=== PATIENT | female | born 1965 | race Caucasian/White ===

== ENCOUNTER 2017-10-04 13:11 | Emergency (ER) | payer MEDICARE ==
[2017-10-04] MEDS ORDERED: XYLOCAINE 1%/Epi 1:100000 MDV 20 ML IJ ONE (13:34)
[2017-10-04] MEDS ORDERED: BACIGUENT PACKET TP ONE (13:34)
[2017-10-04] MEDS ORDERED: Adacel Vial IM ONE ×2 (13:34→13:44)
--- NOTE | 2017-10-04 13:39 | ERPHSYRPT ---
- History of Present Illness Time Seen by Provider: 10/04/17 13:23 Source: patient, family Patient Subjective Stated Complaint: laceration to right forehead after tripping and falling to the ground, struck sidewalk, has lac above right eyebrown, abrasion to left lower leg Triage Nursing Assessment: pt to er c/o laceration just above right eyebrow, tripped and fell striking her head on the sidewalk, glasses intact, denies loss of consciousness denies nause or vomiting, denies mental status change Physician History: CC: fall Hx: 52 y/o patient of Dr scherer. She was outside and the wind blew her over and she fell striking her right eyebrow on the concrete. No LOC. No neck pain. No back pain. Scraped her left knee. Unsure last tetanus vaccine. No N/T/W. No blurred or double vision. Occurred: just prior to arrival Loss of Consciousness: no loss of consciousness Severity of Pain-Max: mild Severity of Pain-Current: mild Allergies/Adverse Reactions: Penicillins Allergy (Verified 10/04/17 13:23) unsure of reaction phenytoin sodium [From Dilantin] Allergy (Verified 10/04/17 13:23) unsure of reaction phenytoin sodium extended [From Dilantin] Allergy (Verified 10/04/17 13:23) Home Medications: Carbamazepine [Tegretol] 1 tab PO TID 07/14/15 [History] Isosorbide Mononitrate [Isosorbide Mononitrate ER] 1 tab PO DAILY 07/14/15 [ History] Metoprolol Succinate 1 tab PO DAILY 07/14/15 [History] Pravastatin Sodium 1 tab PO DAILY 07/14/15 [History] Primidone [Mysoline] 1 tab PO BID 07/14/15 [History] Primidone [Mysoline] 1 tab PO HS 07/14/15 [History] Lamotrigine [Lamictal] 10/04/17 [History] Hx Tetanus, Diphtheria Vaccination/Date Given: No Hx Influenza Vaccination/Date Given: Yes Hx Pneumococcal Vaccination/Date Given: No - Review of Systems Constitutional: No Symptoms Eyes: No Vision Changes, No Double Vision Ears, Nose, & Throat: No Epistaxis Respiratory: No Dyspnea Cardiac: No Chest Pain, No Syncope Abdominal/Gastrointestinal: No Abdominal Pain, No Nausea, No Vomiting Musculoskeletal: No Back Pain, No Neck Pain Skin: No Rash Neurological: No Focal Weakness, No Headache, No Parasthesia All Other Systems: Reviewed and Negative - Past Medical History Pertinent Past Medical History: Yes Neurological History: Epilepsy ENT History: No Pertinent History Cardiac History: Coronary Artery Disease, High Cholesterol, Hypertension Respiratory History: No Pertinent History Endocrine Medical History: No Pertinent History Musculoskeletal History: No Pertinent History GI Medical History: No Pertinent History History: No Pertinent History Psycho-Social History: No Pertinent History Female Reproductive Disorders: No Pertinent History Other Medical History: Mild Mentally Retarded. - Past Surgical History Past Surgical History: Yes Neuro Surgical History: No Pertinent History Cardiac: CABG Respiratory: No Pertinent History Gastrointestinal: No Pertinent History Genitourinary: No Pertinent History Musculoskeletal: No Pertinent History Female Surgical History: No Pertinent History Other Surgical History: had trigger finger surgery on right hand on middle and ring finger in Apr 2015 - Social History Smoking Status: Never smoker Exposure to second hand smoke: No Drug Use: none Patient Lives Alone: Yes - Female History Hx Now: No - Nursing Vital Signs Nursing Vital Signs: Initial Vital Signs Temperature 98.1 F 10/04/17 13:15 Respiratory Rate 20 10/04/17 13:15 O2 Sat by Pulse Oximetry 100 10/04/17 13:15 Pain Scale Pain Intensity 5 - Lynn Coma Score Best Eye Response (Gamaliel): (4) open spontaneously Best Verbal Response (Lynn): (5) oriented Best Motor Response (Lynn): (6) obeys commands Lynn Total: 15 - Physical Exam General Appearance: alert Head Injury: lacerations (2cm right eyebrow) Eye Exam: PERRL/EOMI ENT Exam: airway nml Neck Exam: supple, No mid-line tenderness Respiratory/Chest Exam: normal breath sounds, No chest tenderness Cardiovascular Exam: regular rate/rhythm Gastrointestinal Exam: soft, No tenderness, No distention Extremity Exam: normal inspection, normal range of motion Neurologic Exam: alert, oriented x 3, cooperative, sensation nml, No motor deficits Skin Exam: warm, dry, other (scrape to her left knee), No rash SpO2 Interpretation: normal SpO2: 100 Oxygen Delivery: Room Air Procedures - Laceration/Wound Repair right eyebrow Wound Length (cm): 2 Wound's Depth, Shape: linear Wound Explored: no foreign body noted Irrigated: Yes (NS) Jeana Prep: Yes Anesthesia: local, 1% lidocaine w/ Epi Volume Anesthetic (ccs): 2.5 Wound Repaired With: sutures Suture Size/Type: 5-0, prolene Number of Sutures: 4 - Course Nursing assessment & vital signs reviewed: Yes - CT Exams facial CT Interpretation: Tele-radiologist Report, No Fracture Ordered Tests: Active Orders 24 hr Category Date Time Status Prepare for Sutures STAT Care 10/04/17 13:34 Active Sutures STAT Care 10/04/17 13:34 Active Wound Care STAT Care 10/04/17 13:34 Active FACIAL BONES WO CONTRAST [CT] Stat Exams 10/04/17 13:34 Completed Medication Summary Discontinued Medications Generic Name Dose Route Start Last Admin Trade Name Freq PRN Reason Stop Dose Admin Bacitracin 0.9 gm 10/04/17 13:34 10/04/17 13:58 Baciguent Packet TP 10/04/17 13:35 0.9 gm STAT ONE Administration Bacitracin Confirm 10/04/17 13:44 Baciguent Packet Administered 10/04/17 13:45 Dose 1 gm .ROUTE .STK-MED ONE Diphtheria/Tetanus/Acell Pertussis 0.5 ml 10/04/17 13:34 10/04/17 13:51 Adacel Vial IM 10/04/17 13:35 0.5 ml .ONCE ONE Administration Diphtheria/Tetanus/Acell Pertussis Confirm 10/04/17 13:44 Adacel Vial Administered 10/04/17 13:45 Dose 0.5 ml IM .STK-MED ONE Lidocaine HCl Confirm 10/04/17 13:45 Xylocaine 1% Hcl 20 Ml Mdv Administered 10/04/17 13:46 Dose 5 ml .ROUTE .STK-MED ONE Lidocaine/Epinephrine 5 ml 10/04/17 13:34 Xylocaine 1%/Epi 1:789759 Mdv 20 Ml IJ 10/04/17 13:35 STAT ONE Lidocaine/Epinephrine Confirm 10/04/17 15:33 Xylocaine 1%/Epi 1:789247 Mdv 20 Ml Administered 10/04/17 15:34 Dose 1 ml .ROUTE .STK-MED ONE Lidocaine/Epinephrine Confirm 10/04/17 15:34 Xylocaine 1%/Epi 1:922231 Mdv 20 Ml Administered 10/04/17 15:35 Dose 4 ml .ROUTE .STK-MED ONE - Progress Progress Note: 10/04/17 15:46 Will release with instr. Pt stable. Family in attendance. - Departure Time of Disposition: 15:47 Departure Disposition: Home Clinical Impression: Fall Qualifiers: Encounter type: initial encounter Qualified Code(s): W19.XXXA - Unspecified fall, initial encounter Laceration of right eyebrow Qualifiers: Encounter type: initial encounter Qualified Code(s): S01.111A - Laceration without foreign body of right eyelid and periocular area, initial encounter Abrasion of left knee Qualifiers: Encounter type: initial encounter Qualified Code(s): S80.212A - Abrasion, left knee, initial encounter Condition: Stable Critical Care Time: No Referrals: LACHO SCHERER MD [Primary Care Provider] - Instructions: Laceration Repair With Stitches (DC), Preventing Falls Additional Instructions: LACERATION CARE 1. Do not use peroxide, merthiolate, alcohol, or betadine. 2. Keep wound clean and dry. 3. Change dressing if it becomes wet or soiled. 4. If you must work, wear protective covering. 5. You may return to the emergency department or see your family physician for suture removal. 6. See your family physician or return to the emergency department for any of the following signs or symptoms: A. Redness B. Swelling C. Discolored drainage D. Red streaks E. Elevated temperature F. Other signs of infection HEAD INJURY 1. A responsible person should observe the patient at home for 24 hours. 2. If any of the following signs or symptoms are observed or occur, call your family physician or return to the emergency department: A. Behavior change B. Persistent vomiting C. Unequal pupils D. Increasing drowsiness E. Difficulty in arousing the patient F. Severe headache G. Lump on head increasing in size Suture removal in 5-[address] Scherer office. Return for problems or concerns. Stay with family tonerickson.
[2017-10-04] MEDS ORDERED: BACIGUENT PACKET ONE ×2 (13:44→15:56)
[2017-10-04] MEDS ORDERED: XYLOCAINE 1% HCL 20 ML MDV ONE (13:45)
--- NOTE | 2017-10-04 15:08 | XRAY ---
Indication: Right facial injury following fall. Multiple contiguous axial images obtained through the facial bones. Sagittal and coronal reformatted images obtained. Comparison: None Mild right maxilla and right supraorbital soft tissue swelling. No acute fracture, suspicious bony lesions, or radiopaque foreign body. Orbital roof, sr, and floors intact. Paranasal sinuses and nasal passages are clear. Minimal nasal septal deviation to the right. Patient is edentulous. Nonunited posterior arch of C1, a normal variant. Mild scattered carotid calcifications bilaterally. 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 Impression: 1. Right facial and right supraorbital soft tissue swelling. 2. Negative acute fracture or radiopaque foreign body. CT DI 59.47
[2017-10-04] MEDS ORDERED: XYLOCAINE 1%/Epi 1:100000 MDV 20 ML ONE ×2 (15:33→15:34)
[2017-10-04 16:08] VITALS: BP 161/66; PULSE 64; O2SAT 99
== END 2017-10-04 16:34 | disposition home or self-care (01) ==
LOC: ED 13:11
PROC: 0HQ1XZZ Repair Face Skin, External Approach (ICD-10-PCS; principal; 2017-10-04)
DX: S01.111A Laceration without foreign body of right eyelid and periocular area, initial encounter (principal); S80.212A Abrasion, left knee, initial encounter; W18.09XA Striking against other object with subsequent fall, initial encounter; I10 Essential (primary) hypertension; I25.810 Atherosclerosis of coronary artery bypass graft(s) without angina pectoris; E78.00 Pure hypercholesterolemia, unspecified; Z79.899 Other long term (current) drug therapy
CPT/HCPCS: 12011; 36415; 70486; 80156; 80175; 80184; 80188; 84450; 85025; 90471; 90715; 99283; 99284; A9270-GY

== ENCOUNTER 2021-12-01 21:08 | Inpatient (IN) | payer MEDICARE ==
[2021-12-01 22:12] LABS: Absolute Neutrophil Ct (ANC) 5.31 (1.4-6.9); Basophil (Absolute #) 0.03 (0-0.4); Eosinophil % 3.8 % (0.00-5.0); Eosinophil (Absolute #) 0.28 (0-0.5); Hemoglobin 11.4 gm/dl (12.0-16.0); Lymphocytes % 12.3 % (24.0-44.0); Mean Cell Volume 98.9 fl (78-100); Mean Corpuscular Hemoglobin 30.5 pg (26-32); Mean Corpuscular Hgb Concent. 30.8 g/dl (32-36); Mean Platelet Volume 10.3 fl (7.5-11.0); Monocyte (Absolute #) 0.77 (0.0-1.3); Monocytes % 10.6 % (0.0-12.0); Neutrophil % 72.9 % (36.0-66.0); Platelet Count 491 K/mm3 (150-450); Red Blood Count 3.74 M/mm3 (4.1-5.4); Red Cell Distribution Width 13.3 % (11.5-14.0); White Blood Count 7.3 K/mm3 (4.0-10.5)
--- NOTE | 2021-12-01 22:23 | ERPHSYRPT ---
- History of Present Illness Time Seen by Provider: 12/01/21 21:30 Source: patient Exam Limitations: no limitations Patient Subjective Stated Complaint: patient states that she was seen in er at [facility] 1 week ago. states she was in afib then, she states she is coughing and is SOB due to the cough, states she has pain in her chest due to the cough. states she has not been in contact with anyone that has covid. Triage Nursing Assessment: patient has a dry cough and is holding chest while coughing. currently in afib on monitor and on 12 lead. pt is alert and oriented. Physician History: Patient is a 56-year-old female presents to emergency department via EMS for evaluation of a dry cough and shortness of breath. Patient was at [facility] 1 week ago. Patient was diagnosed with atrial fibrillation. Patient was started on anticoagulation. Patient was discharged home. Patient is here today because her cough is constant and she is experiencing shortness of breath. No fever. No nausea or vomiting. No diaphoresis. Symptoms are moderate in intensity. No specific worsening improving factors. Patient voices no other complaints or concerns at this time. Timing/Duration: today Severity: moderate Modifying Factors: Improves With: nothing Associated Symptoms: No nausea, No vomiting, No diaphoresis, No headaches, No syncope, No seizure Allergies/Adverse Reactions: Penicillins Allergy (Verified 12/01/21 21:26) unsure of reaction phenobarbital Allergy (Verified 12/01/21 21:25) phenytoin sodium [From Dilantin] Allergy (Verified 12/01/21 21:26) unsure of reaction phenytoin sodium extended [From Dilantin] Allergy (Verified 12/01/21 21:26) Home Medications: Isosorbide Mononitrate [Isosorbide Mononitrate ER] 1 tab PO DAILY 07/14/15 [History] Metoprolol Succinate 1 tab PO DAILY 07/14/15 [History] Pravastatin Sodium 1 tab PO DAILY 07/14/15 [History] Primidone [Mysoline] 1 tab PO BID 07/14/15 [History] Primidone [Mysoline] 1 tab PO HS 07/14/15 [History] carBAMazepine [Tegretol] 1 tab PO TID 07/14/15 [History] lamoTRIgine [Lamictal] 10/04/17 [History] Hx Tetanus, Diphtheria Vaccination/Date Given: Yes Hx Influenza Vaccination/Date Given: No Hx Pneumococcal Vaccination/Date Given: No Immunizations Up to Date: No Travel Risk - International Travel Have you traveled outside of the country in past 3 weeks: No - Coronavirus Screening Are you exhibiting any of the following symptoms?: Yes Symptoms: Cough: New Onset, Shortness of Breath Close contact with a COVID-19 positive Pt in past 14-21 Days: No - Vaccine Status Have you recieved a Covid-19 vaccination: No - Review of Systems Constitutional: No Symptoms, No Fever, No Chills Eyes: No Symptoms Ears, Nose, & Throat: No Symptoms Respiratory: No Symptoms, No Cough, No Dyspnea Cardiac: No Symptoms, No Chest Pain, No Edema, No Syncope Abdominal/Gastrointestinal: No Symptoms, No Abdominal Pain, No Nausea, No Vomiting, No Diarrhea Genitourinary Symptoms: No Symptoms, No Dysuria Musculoskeletal: No Symptoms, No Back Pain, No Neck Pain Skin: No Symptoms, No Rash Neurological: No Symptoms, No Dizziness, No Focal Weakness, No Sensory Changes Psychological: No Symptoms Endocrine: No Symptoms Hematologic/Lymphatic: No Symptoms Immunological/Allergic: No Symptoms All Other Systems: Reviewed and Negative - Past Medical History Pertinent Past Medical History: Yes Neurological History: Epilepsy ENT History: No Pertinent History Cardiac History: Coronary Artery Disease, High Cholesterol, Hypertension Respiratory History: No Pertinent History Endocrine Medical History: No Pertinent History Musculoskeletal History: No Pertinent History GI Medical History: No Pertinent History History: No Pertinent History Psycho-Social History: No Pertinent History Female Reproductive Disorders: No Pertinent History Other Medical History: Mild Mentally Retarded. - Past Surgical History Past Surgical History: Yes Neuro Surgical History: No Pertinent History Cardiac: CABG Respiratory: No Pertinent History Gastrointestinal: No Pertinent History Genitourinary: No Pertinent History Musculoskeletal: No Pertinent History Female Surgical History: No Pertinent History Other Surgical History: had trigger finger surgery on right hand on middle and ring finger in Apr 2015 - Social History Smoking Status: Never smoker Exposure to second hand smoke: No Drug Use: none Patient Lives Alone: Yes - Nursing Vital Signs Nursing Vital Signs: Initial Vital Signs Temperature 98.4 F 12/01/21 21:11 Pulse Rate 93 H 12/01/21 21:11 Respiratory Rate 18 12/01/21 21:11 Blood Pressure 155/89 12/01/21 21:11 O2 Sat by Pulse Oximetry 94 L 12/01/21 21:11 Pain Scale Pain Intensity 0 - Physical Exam General Appearance: no apparent distress, alert Eye Exam: PERRL/EOMI, eyes nml inspection Ears, Nose, Throat Exam: normal ENT inspection, TMs normal, pharynx normal, moist mucous membranes Neck Exam: normal inspection, non-tender, supple, full range of motion Respiratory Exam: normal breath sounds, lungs clear, airway intact, No respiratory distress Cardiovascular Exam: regular rate/rhythm, normal heart sounds, normal peripheral pulses Gastrointestinal/Abdomen Exam: soft, normal bowel sounds, No tenderness, No mass Back Exam: normal inspection, normal range of motion, No CVA tenderness, No vertebral tenderness Extremity Exam: normal inspection, normal range of motion, pelvis stable Neurologic Exam: alert, oriented x 3, cooperative, normal mood/affect, nml cerebellar function, nml station & gait, sensation nml, No motor deficits Skin Exam: normal color, warm, dry, No rash Lymphatic Exam: No adenopathy SpO2 Interpretation: normal SpO2: 94 O2 Delivery: Room Air - Course Nursing assessment & vital signs reviewed: Yes EKG Interpreted by Me: RATE (119), A-fib, NORMAL AXIS, prolonged QT interval - Radiology Exams Chest X-ray Interpretation: Interpreted by me (Right perihilar and right basilar infiltrates with areas that appear to be cavitary. Previous CABG.Heart size within normal limits) Ordered Tests: Active Orders 24 hr Category Date Time Status Firmware Software Verification Engineer STAT Care 12/01/21 21:53 Active EKG-ER Only STAT Care 12/01/21 21:52 Active Pulse Oximetry (ED) STAT Care 12/01/21 21:52 Active CHEST 1 VIEW (PORTABLE) Stat Exams 12/01/21 22:24 Taken BLOOD CULTURE Stat Lab 12/01/21 00:30 Received CBC W DIFF Stat Lab 12/01/21 22:05 Completed CMP Stat Lab 12/01/21 22:05 Completed Lactic Acid Stat Lab 12/01/21 23:57 Completed NT PRO BNP Stat Lab 12/01/21 22:05 Completed TROPONIN Q3H Lab 12/01/21 22:05 Completed TROPONIN Q3H Lab 12/02/21 01:00 Ordered TROPONIN Q3H Lab 12/02/21 04:00 Ordered TROPONIN Q3H Lab 12/02/21 07:00 Ordered TROPONIN Q3H Lab 12/02/21 10:00 Ordered Transfer Order Routine Transfer 12/02/21 Ordered Medication Summary Generic Name Dose Route Start Last Admin Trade Name Shawnee PRN Reason Stop Dose Admin Diltiazem HCl 100 mls @ 5 mls/hr 12/01/21 22:21 12/02/21 00:01 Cardizem Drip 100 Mg/100 Ml D5w IV 12/31/21 22:20 10 mg/hr .Q20H PRN 10 mls/hr HEART RATE/ A-FIB Titration Protocol 5 MG/HR Vancomycin HCl 1 gm in 200 mls @ 125 mls/hr 12/01/21 23:59 12/02/21 00:19 Vancomycin 1 Gram/200 Ml Bag IV 12/02/21 01:34 125 mls/hr STAT ONE 125 mls/hr Administration Discontinued Medications Generic Name Dose Route Start Last Admin Trade Name Shawnee PRN Reason Stop Dose Admin Furosemide 40 mg 12/01/21 22:59 12/01/21 23:26 Furosemide 40 Mg/4 Ml Vial IV 12/01/21 23:00 40 mg STAT ONE Administration Furosemide Confirm 12/01/21 23:24 Furosemide 40 Mg/4 Ml Vial Administered 12/01/21 23:25 Dose 40 mg .ROUTE .STK-MED ONE Clindamycin HCl/Dextrose 900 mg in 50 mls @ 100 mls/hr 12/02/21 00:02 Clindamycin-D5w 900 Mg/50 Ml IV 12/02/21 00:31 STAT STA Vancomycin HCl Confirm 12/02/21 00:08 Vancomycin 1 Gram/200 Ml Bag Administered 12/02/21 00:09 Dose 1 gm in 200 mls @ ud IV .STK-MED ONE Lab/Rad Data: Laboratory Result Diagrams 12/01/21 22:05 12/01/21 22:05 Laboratory Results 12/02/21 12/01/21 12/01/21 Range/Units 00:15 22:05 22:05 WBC (4.0-10.5) K/mm3 RBC (4.1-5.4) M/mm3 Hgb (12.0-16.0) gm/dl Hct (35-47) % MCV (78-100) fl MCH (26-32) pg MCHC (32-36) g/dl RDW (11.5-14.0) % Plt Count (150-450) K/mm3 MPV (7.5-11.0) fl Gran % (36.0-66.0) % Eos # (Auto) (0-0.5) Absolute Lymphs (auto) (1.0-4.6) Absolute Monos (auto) (0.0-1.3) Lymphocytes % (24.0-44.0) % Monocytes % (0.0-12.0) % Eosinophils % (0.00-5.0) % Basophils % (0.0-0.4) % Absolute Granulocytes (1.4-6.9) Basophils # (0-0.4) Sodium 135 L (137-145) mmol/L Potassium 5.2 H (3.5-5.1) mmol/L Chloride 98 (98-107) mmol/L Carbon Dioxide 27 (22-30) mmol/L Anion Gap 15.2 H (5-15) MEQ/L BUN 17 (7-17) mg/dL Creatinine 0.86 (0.52-1.04) mg/dL Estimated GFR > 60.0 ML/MIN Glucose 111 H (74-106) mg/dL Lactic Acid 1.8 (0.4-2.0) Calcium 9.2 (8.4-10.2) mg/dL Total Bilirubin 1.00 (0.2-1.3) mg/dL AST 32 (14-36) U/L ALT 20 (0-35) U/L Alkaline Phosphatase 68 (38-126) U/L Troponin I < 0.012 (0.000-0.034) ng/mL NT-Pro-B Natriuret Pep 5670 H (0-900) pg/mL Serum Total Protein 8.0 (6.3-8.2) g/dL Albumin 3.6 (3.5-5.0) g/dL Influenza Type A Ag (NEGATIVE) Influenza Type B Ag (NEGATIVE) RSV (PCR) (Negative) SARS-CoV-2 (PCR) (NEGATIVE) 12/01/21 12/01/21 Range/Units 22:05 00:01 WBC 7.3 (4.0-10.5) K/mm3 RBC 3.74 L (4.1-5.4) M/mm3 Hgb 11.4 L (12.0-16.0) gm/dl Hct 37.0 (35-47) % MCV 98.9 (78-100) fl MCH 30.5 (26-32) pg MCHC 30.8 L (32-36) g/dl RDW 13.3 (11.5-14.0) % Plt Count 491 H (150-450) K/mm3 MPV 10.3 (7.5-11.0) fl Gran % 72.9 H (36.0-66.0) % Eos # (Auto) 0.28 (0-0.5) Absolute Lymphs (auto) 0.90 L (1.0-4.6) Absolute Monos (auto) 0.77 (0.0-1.3) Lymphocytes % 12.3 L (24.0-44.0) % Monocytes % 10.6 (0.0-12.0) % Eosinophils % 3.8 (0.00-5.0) % Basophils % 0.4 (0.0-0.4) % Absolute Granulocytes 5.31 (1.4-6.9) Basophils # 0.03 (0-0.4) Sodium (137-145) mmol/L Potassium (3.5-5.1) mmol/L Chloride (98-107) mmol/L Carbon Dioxide (22-30) mmol/L Anion Gap (5-15) MEQ/L BUN (7-17) mg/dL Creatinine (0.52-1.04) mg/dL Estimated GFR ML/MIN Glucose (74-106) mg/dL Lactic Acid (0.4-2.0) Calcium (8.4-10.2) mg/dL Total Bilirubin (0.2-1.3) mg/dL AST (14-36) U/L ALT (0-35) U/L Alkaline Phosphatase (38-126) U/L Troponin I (0.000-0.034) ng/mL NT-Pro-B Natriuret Pep (0-900) pg/mL Serum Total Protein (6.3-8.2) g/dL Albumin (3.5-5.0) g/dL Influenza Type A Ag NEGATIVE (NEGATIVE) Influenza Type B Ag NEGATIVE (NEGATIVE) RSV (PCR) NEGATIVE (Negative) SARS-CoV-2 (PCR) NEGATIVE (NEGATIVE) - Progress Progress: improved Progress Note: Case discussed with Dr. Shrestha who accepts admission to observation.Plan of care discussed with patient. She agrees to admission at [facility] for further evaluation. Work-up reveals A. fib with RVR. Cardizem initiated. Chest x-ray reveals what appears to be a pneumonia. Blood cultures obtained. Lactic acid within normal limits. Antibiotics infused. BNP elevated. Lasix administered. Potassium marginally elevated at 5.2. Upper limits of normal is 5.1. No peaked T waves on EKGThe Lasix will help out with this mildly elevated potassium. 12/02/21 00:47 COVID test negative 12/02/21 00:48 Patient currently on Eliquis anticoagulation. 12/02/21 00:58 Portions of this note were created with voice recognition technology. There may be grammatical, spelling, punctuation or sound alike errors 12/02/21 00:[address] Bandar Will see patient in: hospital (observation) Counseled pt/family regarding: lab results, diagnosis, rad results - Departure Departure Disposition: Observation Clinical Impression: Atrial fibrillation with RVR, Elevated brain natriuretic peptide (BNP) level, Pneumonia, Thrombocytosis, Hyperkalemia Condition: Stable Critical Care Time: No Referrals: LACHO HARPER MD [Primary Care Provider] - Follow up/PCP as directed Additional Instructions: Discharge/Care Plan JASON MOJICA was seen on 12/02/21 in the Emergency Room. The patient was counseled regarding Diagnosis,Lab results, Imaging studies, need for follow up and when to return to the Emergency Room. Prescriptions given: Discharge Note I have spoken with the patient and/or caregivers. I have explained the patient's condition, diagnosis and treatment plan based on the information available to me at this time. I have answered the patient's and/or caregiver's questions and addressed any concerns. The patient and/or caregivers have as good understanding of the patient's diagnosis, condition and treatment plan as can be expected at this point. The vital signs have been stable. The patient's condition is stable and appropriate for discharge from the emergency department. The patient will pursue further outpatient evaluation with the primary care physician or other designated or consulting physician as outlined in the discharge instructions. The patient and/or caregivers are agreeable to this plan of care and follow-up instructions have been explained in detail. The patient a nd/or caregivers have received these instruction. The patient/and or caregivers are aware that any significant change in condition or worsening of symptoms should prompt an immediate return to this or the closest emergency department or call 911.
[2021-12-01] MEDS: CARDIZEM DRIP 100 MG/100 ML D5W 100 ML IV PRN (22:38)
[2021-12-01 22:44] LABS: ALBUMIN 3.6 g/dL (3.5-5.0); ALKALINE PHOSPHATASE 68 U/L (38-126); ANION GAP 15.2 MEQ/L (5-15); BLOOD UREA NITROGEN 17 mg/dL (7-17); CHLORIDE 98 mmol/L (98-107); Calcium 9.2 mg/dL (8.4-10.2); Carbon Dioxide 27 mmol/L (22-30); Creatinine 1 0.86 mg/dL (0.52-1.04); EST GLOMERULAR FILTRATION RATE > 60.0 ML/MIN; Glucose 111 mg/dL (74-106); NT PRO BNP 5670 pg/mL (0-900); Potassium 5.2 mmol/L (3.5-5.1); SGOT/AST 32 U/L (14-36); SGPT/ALT 20 U/L (0-35); SODIUM 135 mmol/L (137-145)
[2021-12-01] MEDS ORDERED: Lasix 40 MG/4 ML IV ONE (22:59)
[2021-12-01] MEDS ORDERED: Lasix 40 MG/4 ML ONE (23:24)
[2021-12-01] MEDS ORDERED: VANCOMYCIN 1 GRAM/200 ML BAG 1 GM/200 ML PIGGYBACK IV ONE (23:59)
[2021-12-02] MEDS ORDERED: CLINDAMYCIN-D5W 900 MG/50 ML*** 900 MG/50 ML BAG IV STA (00:02)
[2021-12-02] MEDS ORDERED: VANCOMYCIN 1 GRAM/200 ML BAG 1 GM/200 ML PIGGYBACK IV ONE (00:08)
[2021-12-02 00:40] LABS: INFLUENZA A NEGATIVE (NEGATIVE); INFLUENZA B NEGATIVE (NEGATIVE); RESPIRATORY SYNCTIAL VIRUS NEGATIVE (Negative); SARS-CoV-2 Xpert Express NEGATIVE (NEGATIVE)
[2021-12-02] MEDS ORDERED: Zofran 4 MG/2 ML VIAL IV PRN (01:19)
[2021-12-02] MEDS ORDERED: MILK OF MAGNESIA 30 ML PO PRN (01:19)
[2021-12-02] MEDS ORDERED: MAALOX ES 30 ML UNIT DOSE PO PRN (01:19)
[2021-12-02] MEDS ORDERED: TYLENOL 325 MG PO PRN (01:19)
[2021-12-02] MEDS ORDERED: Senokot-S Tablet PO PRN (01:19)
[2021-12-02] MEDS: CARDIZEM DRIP 100 MG/100 ML D5W 100 ML IV PRN ×2 (02:23→04:56)
[2021-12-02 05:26] LABS: Risk Ratio 3.8
--- NOTE | 2021-12-02 08:54 | XRAY ---
Indication: Cough. Atrial fibrillation. Comparison: None Portable chest demonstrates diffuse patchy right lung airspace disease without consolidation/large effusion. Remaining heart, lungs, and bony thorax unremarkable with incidental CABG. Comment: Preliminary interpretation made by [facility]. No critical discrepancy.
--- NOTE | 2021-12-02 09:08 | PCM.HP ---
History of Present Illness - Chief Complaint Chief Complaint: A. fib with RVR History of Present Illness: is a 56 year old female who presented to the ER with shortness of breath, cough and elevated heart rate. She was recently admitted to [facility], in atrial fib and on eliquis, taking metoprolol 150mg po bid but heart rate to 140, swelling and shortness of breath with cough. Family states she was swollen when released from [facility] 2 weeks ago, progressively worsening since then. previous hx of CABG. - Review of Systems Constitutional: No Fever, No Chills Respiratory: Cough, Short Of Breath Cardiac: No Symptoms Abdominal/Gastrointestinal: No Abdominal Pain, No Nausea, No Vomiting, No Diarrhea Skin: No Rash All Other Systems: Reviewed and Negative Medications & Allergies Home Medications: Home Medication List Isosorbide Mononitrate [Isosorbide Mononitrate ER] 30 mg PO DAILY 07/14/15 [History Confirmed 12/02/21] Pravastatin Sodium 40 mg PO HS 07/14/15 [History Confirmed 12/02/21] Primidone [Mysoline] 375 mg PO DAILY 07/14/15 [History Confirmed 12/02/21] Amlodipine Besylate 5 mg [Norvasc 5 mg] 5 mg PO DAILY 12/02/21 [History Confirmed 12/02/21] Apixaban [Eliquis 5 mg Tablet] 5 mg PO BID 12/02/21 [History Confirmed 12/02/21] Levetiracetam [Keppra] 500 mg PO BID 12/02/21 [History Confirmed 12/02/21] Losartan Potassium [Cozaar] 25 mg PO DAILY 12/02/21 [History Confirmed 12/02/21] Meclizine HCl 25 mg [Antivert 25 mg] 25 mg PO TID 12/02/21 [History Confirmed 12/02/21] Metoprolol Tartrate [Lopressor] 150 mg PO BID 12/02/21 [History Confirmed 12/02/21] lamoTRIgine [Lamictal] 300 mg PO BID 12/02/21 [History Confirmed 12/02/21] Allergies/Adverse Reactions: Allergies Allergy/AdvReac Type Severity Reaction Status Date / Time Penicillins Allergy Verified 12/01/21 21:26 phenobarbital Allergy Verified 12/01/21 21:25 phenytoin sodium Allergy Verified 12/01/21 21:26 [From Dilantin] phenytoin sodium extended Allergy Verified 12/01/21 21:26 [From Dilantin] - Past Medical History Past Medical History: Yes Neurological History: Epilepsy ENT History: No Pertinent History Cardiac History: Congestive Heart Failure, Coronary Artery Disease, High Cholesterol, Hypertension Respiratory History: CHF Endocrine Medical History: No Pertinent History Musculoskelatal History: No Pertinent History GI Medical History: No Pertinent History History: No Pertinent History Pyscho-Social History: Other Reproductive Disorders: No Pertinent History Comment: Mildly mentally delayed - Female History Are you now?: No - Past Surgical History Past Surgical History: Yes Neuro Surgical History: No Pertinent History Cardiac History: CABG Respiratory Surgery: No Pertinent History GI Surgical History: No Pertinent History Genitourinary Surgical Hx: No Pertinent History Musculskeletal Surgical Hx: No Pertinent History Female Surgical History: No Pertinent History Other Surgical History: had trigger finger surgery on right hand on middle and ring finger in Apr 2015 - Social History Smoking Status: Never smoker Exposure to second hand smoke: No Alcohol: None Drug Use: none - Physical Exam Vital Signs: Vital Signs - 24 hr Temp Pulse Resp BP BP Pulse Ox 12/02/21 08:00 99 H 35 H 107/80 93 L 12/02/21 07:59 118 H 12/02/21 07:36 98.2 F 113 H 21 181/64 92 L 12/02/21 07:29 92 L 12/02/21 06:23 94 H 26 H 138/79 12/02/21 05:56 106 H 22 130/73 12/02/21 05:23 98 H 27 H 130/73 12/02/21 05:00 92 L 12/02/21 04:56 113 H 22 108/73 12/02/21 04:23 97 H 24 108/73 12/02/21 04:00 99.8 F 113 H 22 108/73 91 L 12/02/21 03:23 93 H 22 116/61 12/02/21 03:07 93 H 22 116/61 12/02/21 02:23 92 H 20 127/110 12/02/21 01:16 100.6 F 113 H 26 H 135/83 91 L 12/02/21 01:00 94 L 12/02/21 01:00 115 H 18 131/73 93 L 12/02/21 00:41 112 H 18 131/73 12/02/21 00:01 138 H 18 131/73 12/01/21 23:54 125 H 18 131/73 92 L 12/01/21 22:38 125 H 18 136/95 12/01/21 22:19 110 H 18 137/74 95 12/01/21 22:18 92 L 12/01/21 21:11 98.4 F 93 H 18 155/89 94 L General Appearance: mild distress, obese Neurologic Exam: alert, oriented x 3 Respiratory Exam: accessory muscle use, prolonged expirations, rhonchi Cardiovascular Exam: murmur, tachycardia, irregular Gastrointestinal/Abdomen Exam: soft, normal bowel sounds, No tenderness, No mass Extremity Exam: normal inspection, normal range of motion, pelvis stable Skin Exam: normal color, warm, dry, No rash Wound Assessment: Skin/Wound Assessment Wound/Incision Assessment Start: 12/02/21 02:14 Text: Status: Active Freq: Q6H Protocol: Document 12/02/21 07:59 DALTON (Rec: 12/02/21 08:04 DALTON [id number]) Wound/Incision Assessment Left Lower Other Wound Assessment Shift Assessment Wound Type Laceration Wound Stage Non Pressure Wound Drainage Amount None General Appearance Open to air Surrounding Tissue Silex Wound Photo Photo Taken No Results - Labs Lab/Micro Results: Lab Results-Last 24 Hours 12/01/21 12/01/21 12/01/21 Range/Units 00:01 22:05 22:05 WBC 7.3 (4.0-10.5) K/mm3 RBC 3.74 L (4.1-5.4) M/mm3 Hgb 11.4 L (12.0-16.0) gm/dl Hct 37.0 (35-47) % MCV 98.9 (78-100) fl MCH 30.5 (26-32) pg MCHC 30.8 L (32-36) g/dl RDW 13.3 (11.5-14.0) % Plt Count 491 H (150-450) K/mm3 MPV 10.3 (7.5-11.0) fl Gran % 72.9 H (36.0-66.0) % Eos # (Auto) 0.28 (0-0.5) Absolute Lymphs (auto) 0.90 L (1.0-4.6) Absolute Monos (auto) 0.77 (0.0-1.3) Lymphocytes % 12.3 L (24.0-44.0) % Monocytes % 10.6 (0.0-12.0) % Eosinophils % 3.8 (0.00-5.0) % Basophils % 0.4 (0.0-0.4) % Absolute Granulocytes 5.31 (1.4-6.9) Basophils # 0.03 (0-0.4) Sodium 135 L (137-145) mmol/L Potassium 5.2 H (3.5-5.1) mmol/L Chloride 98 (98-107) mmol/L Carbon Dioxide 27 (22-30) mmol/L Anion Gap 15.2 H (5-15) MEQ/L BUN 17 (7-17) mg/dL Creatinine 0.86 (0.52-1.04) mg/dL Estimated GFR > 60.0 ML/MIN Glucose 111 H (74-106) mg/dL Lactic Acid (0.4-2.0) Calcium 9.2 (8.4-10.2) mg/dL Total Bilirubin 1.00 (0.2-1.3) mg/dL AST 32 (14-36) U/L ALT 20 (0-35) U/L Alkaline Phosphatase 68 (38-126) U/L Troponin I (0.000-0.034) ng/mL NT-Pro-B Natriuret Pep 5670 H (0-900) pg/mL Serum Total Protein 8.0 (6.3-8.2) g/dL Albumin 3.6 (3.5-5.0) g/dL Triglycerides (30-150) mg/dL Cholesterol (50-200) mg/dL LDL Cholesterol (30-100) mg/dL HDL Cholesterol (40-60) mg/dL Heart Disease Risk Ratio Influenza Type A Ag NEGATIVE (NEGATIVE) Influenza Type B Ag NEGATIVE (NEGATIVE) RSV (PCR) NEGATIVE (Negative) SARS-CoV-2 (PCR) NEGATIVE (NEGATIVE) 12/01/21 12/02/21 12/02/21 Range/Units 22:05 00:15 00:30 WBC (4.0-10.5) K/mm3 RBC (4.1-5.4) M/mm3 Hgb (12.0-16.0) gm/dl Hct (35-47) % MCV (78-100) fl MCH (26-32) pg MCHC (32-36) g/dl RDW (11.5-14.0) % Plt Count (150-450) K/mm3 MPV (7.5-11.0) fl Gran % (36.0-66.0) % Eos # (Auto) (0-0.5) Absolute Lymphs (auto) (1.0-4.6) Absolute Monos (auto) (0.0-1.3) Lymphocytes % (24.0-44.0) % Monocytes % (0.0-12.0) % Eosinophils % (0.00-5.0) % Basophils % (0.0-0.4) % Absolute Granulocytes (1.4-6.9) Basophils # (0-0.4) Sodium (137-145) mmol/L Potassium (3.5-5.1) mmol/L Chloride (98-107) mmol/L Carbon Dioxide (22-30) mmol/L Anion Gap (5-15) MEQ/L BUN (7-17) mg/dL Creatinine (0.52-1.04) mg/dL Estimated GFR ML/MIN Glucose (74-106) mg/dL Lactic Acid 1.8 (0.4-2.0) Calcium (8.4-10.2) mg/dL Total Bilirubin (0.2-1.3) mg/dL AST (14-36) U/L ALT (0-35) U/L Alkaline Phosphatase (38-126) U/L Troponin I < 0.012 < 0.012 (0.000-0.034) ng/mL NT-Pro-B Natriuret Pep (0-900) pg/mL Serum Total Protein (6.3-8.2) g/dL Albumin (3.5-5.0) g/dL Triglycerides (30-150) mg/dL Cholesterol (50-200) mg/dL LDL Cholesterol (30-100) mg/dL HDL Cholesterol (40-60) mg/dL Heart Disease Risk Ratio Influenza Type A Ag (NEGATIVE) Influenza Type B Ag (NEGATIVE) RSV (PCR) (Negative) SARS-CoV-2 (PCR) (NEGATIVE) 12/02/21 12/02/21 12/02/21 Range/Units 04:15 04:15 07:15 WBC (4.0-10.5) K/mm3 RBC (4.1-5.4) M/mm3 Hgb (12.0-16.0) gm/dl Hct (35-47) % MCV (78-100) fl MCH (26-32) pg MCHC (32-36) g/dl RDW (11.5-14.0) % Plt Count (150-450) K/mm3 MPV (7.5-11.0) fl Gran % (36.0-66.0) % Eos # (Auto) (0-0.5) Absolute Lymphs (auto) (1.0-4.6) Absolute Monos (auto) (0.0-1.3) Lymphocytes % (24.0-44.0) % Monocytes % (0.0-12.0) % Eosinophils % (0.00-5.0) % Basophils % (0.0-0.4) % Absolute Granulocytes (1.4-6.9) Basophils # (0-0.4) Sodium (137-145) mmol/L Potassium (3.5-5.1) mmol/L Chloride (98-107) mmol/L Carbon Dioxide (22-30) mmol/L Anion Gap (5-15) MEQ/L BUN (7-17) mg/dL Creatinine (0.52-1.04) mg/dL Estimated GFR ML/MIN Glucose (74-106) mg/dL Lactic Acid (0.4-2.0) Calcium (8.4-10.2) mg/dL Total Bilirubin (0.2-1.3) mg/dL AST (14-36) U/L ALT (0-35) U/L Alkaline Phosphatase (38-126) U/L Troponin I < 0.012 < 0.012 (0.000-0.034) ng/mL NT-Pro-B Natriuret Pep (0-900) pg/mL Serum Total Protein (6.3-8.2) g/dL Albumin (3.5-5.0) g/dL Triglycerides 66 (30-150) mg/dL Cholesterol 115 (50-200) mg/dL LDL Cholesterol 63 (30-100) mg/dL HDL Cholesterol 30 L (40-60) mg/dL Heart Disease Risk Ratio 3.8 Influenza Type A Ag (NEGATIVE) Influenza Type B Ag (NEGATIVE) RSV (PCR) (Negative) SARS-CoV-2 (PCR) (NEGATIVE) - Radiology Impressions Radiology Exams & Impressions: Radiology Procedures Category Date Time Status CHEST 1 VIEW (PORTABLE) Stat Exams 12/01/21 22:24 Completed - Other Procedures and Tests Respiratory Therapy 12/02/21 01:36 Oxygen NASAL CANNULA 2 lpm 12/03/21 05:00 EKG DAILY 12/04/21 05:00 EKG DAILY 12/05/21 05:00 EKG DAILY Assessment/Plan (1) Atrial fibrillation with RVR Current Visit: Yes Status: Acute Assessment & Plan: rate in low 100's, currently on cardizem at 10mg/hr, will consult cardiology for recommendations since she has failed large beta babak dose of metoprolol 150mg bid, continue eliquis Code(s): I48.91 - UNSPECIFIED ATRIAL FIBRILLATION (2) Pneumonia Current Visit: Yes Status: Acute Assessment & Plan: covering with levaquin based on chest xray and clinical picture Code(s): J18.9 - PNEUMONIA, UNSPECIFIED ORGANISM (3) Systolic CHF, acute on chronic Current Visit: Yes Status: Acute Assessment & Plan: will diurese with lasix, EF 4 months ago on echo was 40-45% and has volume overload on exam with markedly elevated bnp Code(s): I50.23 - ACUTE ON CHRONIC SYSTOLIC (CONGESTIVE) HEART FAILURE (4) Seizure disorder Current Visit: Yes Status: Acute Assessment & Plan: continue home meds Code(s): G40.909 - EPILEPSY, UNSP, NOT INTRACTABLE, WITHOUT STATUS EPILEPTICUS
[2021-12-02] MEDS ORDERED: LAMOTRIGINE 150 MG PO SCH (10:00)
[2021-12-02] MEDS ORDERED: NORVASC 5 MG PO SCH (10:00)
[2021-12-02] MEDS ORDERED: NON-FORMULARY ITEM (Apixaban*** [Eliquis 5 Mg Tablet***] 5 MG Tablet) PO SCH (10:00)
[2021-12-02] MEDS ORDERED: NON-FORMULARY ITEM (Metoprolol Tartrate [Lopressor] 100 MG Tablet) PO SCH (10:00)
[2021-12-02] MEDS ORDERED: ANTIVERT 25 MG PO PRN (10:00)
[2021-12-02] MEDS ORDERED: NON-FORMULARY ITEM (Primidone [Mysoline] 250 MG Tablet) PO SCH (10:00)
[2021-12-02] MEDS ORDERED: Imdur 30 MG PO SCH ×2 (10:00→17:00)
[2021-12-02] MEDS ORDERED: NON-FORMULARY ITEM (Losartan Potassium [Cozaar] 25 MG Tablet) PO SCH (10:00)
[2021-12-02] MEDS: LEVOFLOXACIN 750MG/150ML D5W 750 MG/150 ML BAG IV SCH (10:07)
[2021-12-02] MEDS: Lasix 20 MG/2 ML IV SCH ×2 (10:07→16:44)
[2021-12-02] MEDS: HYDROCODONE-CHLORPHEN ER SUSP PO PRN ×2 (10:07→22:17)
[2021-12-02] MEDS: lamICTAL 100MG TABLET PO SCH ×2 (10:08→22:17)
[2021-12-02] MEDS: ELIQUIS 2.5 MG TABLET PO SCH ×2 (10:08→22:17)
[2021-12-02] MEDS: KEPPRA 500 MG PO SCH ×2 (10:08→22:17)
[2021-12-02] MEDS: Cozaar 50 MG PO SCH (10:08)
[2021-12-02] MEDS: Lopressor 50 MG PO SCH ×2 (10:08→22:16)
[2021-12-02] MEDS: MYSOLINE 50MG PO SCH (10:38)
[2021-12-02] MEDS ORDERED: Cardizem 30 MG PO SCH (13:00)
[2021-12-02] MEDS ORDERED: NON-FORMULARY ITEM (Pravastatin Sodium [Pravastatin Sodium] 40 MG Tablet) PO SCH (22:00)
[2021-12-02] MEDS: Cardizem 30 MG PO SCH (22:16)
[2021-12-02] MEDS: ZOCOR 20MG PO SCH (22:17)
[2021-12-03 05:15] LABS: Absolute Neutrophil Ct (ANC) 3.28 (1.4-6.9); Basophil (Absolute #) 0.05 (0-0.4); Eosinophil % 4.7 % (0.00-5.0); Eosinophil (Absolute #) 0.27 (0-0.5); Hematocrit 38.7 % (35-47); Hemoglobin 11.9 gm/dl (12.0-16.0); Lymphocyte (Absolute #) 1.25 (1.0-4.6); Lymphocytes % 21.7 % (24.0-44.0); Mean Corpuscular Hemoglobin 30.4 pg (26-32); Mean Corpuscular Hgb Concent. 30.7 g/dl (32-36); Monocytes % 15.7 % (0.0-12.0); Platelet Count 477 K/mm3 (150-450); Red Blood Count 3.91 M/mm3 (4.1-5.4); Red Cell Distribution Width 13.6 % (11.5-14.0); White Blood Count 5.8 K/mm3 (4.0-10.5)
[2021-12-03 05:38] LABS: ANION GAP 14.7 MEQ/L (5-15); Calcium 8.7 mg/dL (8.4-10.2); Creatinine 1 1.18 mg/dL (0.52-1.04); MAGNESIUM 1.9 mg/dL (1.6-2.3); Potassium 3.7 mmol/L (3.5-5.1)
--- NOTE | 2021-12-03 07:47 | PCM.NOTE ---
Date and Time: 12/03/2146 Subjective Assessment: patient still has cough, she appears to be breathing more comfortably this morning. no new c/o Objective Exam General Appearance: no apparent distress, obese Neurologic Exam: alert, oriented x 3 Wound Assessment: Skin/Wound Assessment Wound/Incision Assessment Start: 12/02/21 02:14 Text: Status: Active Freq: Q6H Protocol: Document 12/03/21 07:00 AMENA (Rec: 12/03/21 07:12 AMENA [id number]) Wound/Incision Assessment Left Lower Other Wound Assessment Shift Assessment Wound Type Laceration Wound Stage Non Pressure Wound Drainage Amount None General Appearance Open to air Surrounding Tissue Reeves Wound Photo Photo Taken No Respiratory Exam: crackles/rales Cardiovascular Exam: regular rate/rhythm, normal heart sounds Gastrointestinal/Abdomen Exam: soft, No tenderness, No mass OBJECTIVE DATA Vital Signs: Vital Signs - 24 hr Temp Pulse Resp BP BP Pulse Ox 12/03/21 07:30 98.3 F 93 H 28 H 113/71 95 12/03/21 07:22 105 H 12/03/21 04:00 98.3 F 97 H 26 H 114/61 94 L 12/03/21 00:01 91 H 12/02/21 23:50 97.9 F 91 H 26 H 131/82 94 L 12/02/21 20:00 101 H 12/02/21 19:52 98.9 F 101 H 24 123/87 94 L 12/02/21 17:45 92 L 12/02/21 16:00 97.7 F 88 24 129/73 93 L 12/02/21 15:12 87 22 98/58 12/02/21 15:00 87 22 98/58 93 L 12/02/21 14:11 83 26 H 103/67 12/02/21 14:00 83 26 H 103/67 93 L 12/02/21 13:00 92 H 25 H 111/61 94 L 12/02/21 12:19 91 H 25 H 98/55 12/02/21 12:00 91 H 25 H 98/55 92 L 12/02/21 11:00 110 H 20 90/73 91 L 12/02/21 10:00 111 H 34 H 117/78 95 12/02/21 09:00 109 H 14 123/57 93 L 12/02/21 08:00 99 H 35 H 107/80 93 L 12/02/21 07:59 118 H Pain Assessment - Last Documented Pain Intensity 4 Pain Scale Used FLACC Intake and Output: Intake & Output 11/30/21 12/01/21 12/02/21 12/03/21 11:59 11:59 11:59 11:59 Intake Total 266 200 Output Total 1450 1300 Balance -1184 -1100 Weight 99.9 kg 99 kg Lab Results: Lab Results-Last 24 Hours 12/02/21 12/02/21 12/03/21 Range/Units 07:15 10:00 04:05 WBC 5.8 (4.0-10.5) K/mm3 RBC 3.91 L (4.1-5.4) M/mm3 Hgb 11.9 L (12.0-16.0) gm/dl Hct 38.7 (35-47) % MCV 99.0 (78-100) fl MCH 30.4 (26-32) pg MCHC 30.7 L (32-36) g/dl RDW 13.6 (11.5-14.0) % Plt Count 477 H (150-450) K/mm3 MPV 11.0 (7.5-11.0) fl Gran % 57.0 (36.0-66.0) % Eos # (Auto) 0.27 (0-0.5) Absolute Lymphs (auto) 1.25 (1.0-4.6) Absolute Monos (auto) 0.90 (0.0-1.3) Lymphocytes % 21.7 L (24.0-44.0) % Monocytes % 15.7 H (0.0-12.0) % Eosinophils % 4.7 (0.00-5.0) % Basophils % 0.9 (0.0-0.4) % Absolute Granulocytes 3.28 (1.4-6.9) Basophils # 0.05 (0-0.4) Sodium (137-145) mmol/L Potassium (3.5-5.1) mmol/L Chloride (98-107) mmol/L Carbon Dioxide (22-30) mmol/L Anion Gap (5-15) MEQ/L BUN (7-17) mg/dL Creatinine (0.52-1.04) mg/dL Estimated GFR ML/MIN Glucose (74-106) mg/dL Calcium (8.4-10.2) mg/dL Magnesium (1.6-2.3) mg/dL Troponin I < 0.012 < 0.012 (0.000-0.034) ng/mL NT-Pro-B Natriuret Pep (0-900) pg/mL 12/03/21 Range/Units 04:05 WBC (4.0-10.5) K/mm3 RBC (4.1-5.4) M/mm3 Hgb (12.0-16.0) gm/dl Hct (35-47) % MCV (78-100) fl MCH (26-32) pg MCHC (32-36) g/dl RDW (11.5-14.0) % Plt Count (150-450) K/mm3 MPV (7.5-11.0) fl Gran % (36.0-66.0) % Eos # (Auto) (0-0.5) Absolute Lymphs (auto) (1.0-4.6) Absolute Monos (auto) (0.0-1.3) Lymphocytes % (24.0-44.0) % Monocytes % (0.0-12.0) % Eosinophils % (0.00-5.0) % Basophils % (0.0-0.4) % Absolute Granulocytes (1.4-6.9) Basophils # (0-0.4) Sodium 135 L (137-145) mmol/L Potassium 3.7 D (3.5-5.1) mmol/L Chloride 93 L (98-107) mmol/L Carbon Dioxide 31 H (22-30) mmol/L Anion Gap 14.7 (5-15) MEQ/L BUN 27 H (7-17) mg/dL Creatinine 1.18 H (0.52-1.04) mg/dL Estimated GFR 50.0 ML/MIN Glucose 93 (74-106) mg/dL Calcium 8.7 (8.4-10.2) mg/dL Magnesium 1.9 (1.6-2.3) mg/dL Troponin I (0.000-0.034) ng/mL NT-Pro-B Natriuret Pep 3410 H (0-900) pg/mL Radiology Exams: Radiology Procedures Category Date Time Status CHEST 1 VIEW (PORTABLE) Stat Exams 12/01/21 22:24 Completed Multi-Disciplinary Progress Notes: Multi-Disciplinary Progress Notes 12/02/21 10:50 Case Management Note by Donna Hook PATIENT HAS [facility]. THEY WERE NOTIFIED PATIENT IS HER OBS. THEY WILL NEED NOTIFIED AT TIME OF DC AT [phone]. THEY WILL NEED FAXED THE DC INSTRUCTIONS, DC MED LIST AND DC SUMMARY (IF AVAILABLE) TO [phone] Initialized on 12/02/21 10:50 - END OF NOTE Assessment/Plan (1) Atrial fibrillation with RVR Current Visit: Yes Status: Acute Assessment & Plan: rate is reasonably well controlled with metoprolol and cardizem, cont eliquis Code(s): I48.91 - UNSPECIFIED ATRIAL FIBRILLATION (2) Pneumonia Current Visit: Yes Status: Acute Assessment & Plan: cont levaquin Code(s): J18.9 - PNEUMONIA, UNSPECIFIED ORGANISM (3) Systolic CHF, acute on chronic Current Visit: Yes Status: Acute Assessment & Plan: clincally improving, bnp trending down. continue IV lasix Code(s): I50.23 - ACUTE ON CHRONIC SYSTOLIC (CONGESTIVE) HEART FAILURE (4) Seizure disorder Current Visit: Yes Status: Acute Code(s): G40.909 - EPILEPSY, UNSP, NOT INTRACTABLE, WITHOUT STATUS EPILEPTICUS
[2021-12-03] MEDS ORDERED: PROVENTIL 2.5 MG/3 ML NEB IH PRN (08:07)
[2021-12-03] MEDS: Lopressor 50 MG PO SCH ×2 (08:55→21:58)
[2021-12-03] MEDS: Lasix 20 MG/2 ML IV SCH ×2 (08:55→16:08)
[2021-12-03] MEDS: MYSOLINE 50MG PO SCH (08:56)
[2021-12-03] MEDS: ELIQUIS 2.5 MG TABLET PO SCH ×2 (08:58→21:59)
[2021-12-03] MEDS: lamICTAL 100MG TABLET PO SCH ×2 (08:58→21:59)
[2021-12-03] MEDS: KEPPRA 500 MG PO SCH ×2 (08:58→21:59)
[2021-12-03] MEDS: Cardizem 30 MG PO SCH ×4 (08:58→21:59)
[2021-12-03] MEDS: Imdur 30 MG PO SCH (08:58)
[2021-12-03] MEDS: Cozaar 50 MG PO SCH (08:59)
[2021-12-03] MEDS: HYDROCODONE-CHLORPHEN ER SUSP PO PRN (09:00)
[2021-12-03] MEDS: LEVOFLOXACIN 750MG/150ML D5W 750 MG/150 ML BAG IV SCH (09:00)
[2021-12-03] MEDS: Klor Con 10 MEQ PO SCH ×2 (09:04→21:59)
[2021-12-03] MEDS ORDERED: Cardizem 30 MG PO SCH (10:00)
[2021-12-03] MEDS: ZOCOR 20MG PO SCH (21:58)
[2021-12-04 05:26] LABS: Absolute Neutrophil Ct (ANC) 2.45 (1.4-6.9); Basophil (Absolute #) 0.05 (0-0.4); Eosinophil % 7.2 % (0.00-5.0); Eosinophil (Absolute #) 0.43 (0-0.5); Hematocrit 39.3 % (35-47); Lymphocyte (Absolute #) 1.95 (1.0-4.6); Lymphocytes % 32.6 % (24.0-44.0); Mean Cell Volume 98.3 fl (78-100); Mean Corpuscular Hgb Concent. 30.5 g/dl (32-36); Mean Platelet Volume 10.9 fl (7.5-11.0); Monocytes % 18.4 % (0.0-12.0); Platelet Count 458 K/mm3 (150-450); Red Cell Distribution Width 13.4 % (11.5-14.0)
[2021-12-04 05:49] LABS: ANION GAP 14.1 MEQ/L (5-15); BLOOD UREA NITROGEN 27 mg/dL (7-17); CHLORIDE 94 mmol/L (98-107); Calcium 8.9 mg/dL (8.4-10.2); Carbon Dioxide 31 mmol/L (22-30); Creatinine 1 0.95 mg/dL (0.52-1.04); EST GLOMERULAR FILTRATION RATE > 60.0 ML/MIN; Glucose 95 mg/dL (74-106); Potassium 3.7 mmol/L (3.5-5.1); SODIUM 135 mmol/L (137-145)
--- NOTE | 2021-12-04 08:05 | PCM.DS ---
Discharge Summary Date of Admission: 12/02/21 09:03 Admitting Physician: KEESHA PERERA Consults: Consults on Case 12/02/21 09:01 Consult Cardiology ROUTINE Primary Care Provider: LACHO HARPER MARY Allergies Allergies Penicillins Allergy (Verified 12/01/21 21:26) unsure of reaction phenobarbital Allergy (Verified 12/01/21 21:25) phenytoin sodium [From Dilantin] Allergy (Verified 12/01/21 21:26) unsure of reaction phenytoin sodium extended [From Dilantin] Allergy (Verified 12/01/21 21:26) Hospital Summary - Hospital Course Hospital Course: patient was admitted with pneumonia and a fib with rvr, po cardizem added. rate has been controlled, she was diuresed and treated for pneumonia. she is on room air and feeling much better at the time of discharge today. telecardiology consult with Dr Thomas was done and recommendations noted. - Vitals & Intake/Output Vital Signs: Vital Signs Temperature 97.1 F 12/04/21 04:00 Pulse Rate 94 H 12/04/21 04:00 Respiratory Rate 18 12/04/21 04:00 Blood Pressure 115/71 12/04/21 04:00 O2 Sat by Pulse Oximetry 92 L 12/04/21 04:00 Intake & Output: Intake & Output 12/01/21 12/02/21 12/03/21 12/04/21 11:59 11:59 11:59 11:59 Intake Total 266 200 880 Output Total 1450 1300 1200 Balance -1184 -1100 -320 Weight 99.9 kg 99 kg 103.1 kg - Lab Result Diagrams: 12/04/21 04:10 12/04/21 04:10 Lab Results-Last 24 Hrs: Lab Results-Last 24 Hours 12/04/21 12/04/21 Range/Units 04:10 04:10 WBC 6.0 (4.0-10.5) K/mm3 RBC 4.00 L (4.1-5.4) M/mm3 Hgb 12.0 (12.0-16.0) gm/dl Hct 39.3 (35-47) % MCV 98.3 (78-100) fl MCH 30.0 (26-32) pg MCHC 30.5 L (32-36) g/dl RDW 13.4 (11.5-14.0) % Plt Count 458 H (150-450) K/mm3 MPV 10.9 (7.5-11.0) fl Gran % 41.0 (36.0-66.0) % Eos # (Auto) 0.43 (0-0.5) Absolute Lymphs (auto) 1.95 (1.0-4.6) Absolute Monos (auto) 1.10 (0.0-1.3) Lymphocytes % 32.6 (24.0-44.0) % Monocytes % 18.4 H (0.0-12.0) % Eosinophils % 7.2 H (0.00-5.0) % Basophils % 0.8 (0.0-0.4) % Absolute Granulocytes 2.45 (1.4-6.9) Basophils # 0.05 (0-0.4) Sodium 135 L (137-145) mmol/L Potassium 3.7 (3.5-5.1) mmol/L Chloride 94 L (98-107) mmol/L Carbon Dioxide 31 H (22-30) mmol/L Anion Gap 14.1 (5-15) MEQ/L BUN 27 H (7-17) mg/dL Creatinine 0.95 (0.52-1.04) mg/dL Estimated GFR > 60.0 ML/MIN Glucose 95 (74-106) mg/dL Calcium 8.9 (8.4-10.2) mg/dL Magnesium 2.0 (1.6-2.3) mg/dL Micro Results-Entire Visit: Microbiology 12/01/21 00:30 Blood Culture - Preliminary Blood NO GROWTH TO DATE 12/01/21 00:00 Blood Culture - Preliminary Blood NO GROWTH TO DATE - Procedures and Test Procedures and Tests throughout Hospitalization: Therapy Orders & Screens 12/02/21 01:19 EKG Q8HX2,QAMX3,PRN Comment: 12/02/21 01:36 Oxygen NASAL CANNULA 2 lpm Comment: Diagnosis: A. fib with RVR 12/02/21 05:52 EKG ROUTINE Comment: Diagnosis: A. fib with RVR 12/03/21 05:00 EKG DAILY Comment: Diagnosis: A. fib with RVR 12/03/21 08:08 Respiratory Therapy Assessment DAILY Comment: Diagnosis: A. fib with RVR 12/04/21 05:00 EKG DAILY Comment: Diagnosis: A. fib with RVR 12/05/21 05:00 EKG DAILY Comment: Diagnosis: A. fib with RVR Discharge Exam General Appearance: no apparent distress, obese Neurologic Exam: alert, oriented x 3 Respiratory Exam: normal breath sounds, lungs clear, No respiratory distress Cardiovascular Exam: irregular Gastrointestinal/Abdomen Exam: soft, No tenderness, No mass Extremity Exam: normal inspection, normal range of motion Skin Exam: normal color, warm, dry Final Diagnosis/Problem List - Final Discharge Diagnosis/Problem (1) Atrial fibrillation with RVR Current Visit: Yes Status: Acute Assessment & Plan: cardizem added to beta babak, continue eliquis Code(s): I48.91 - UNSPECIFIED ATRIAL FIBRILLATION (2) Pneumonia Current Visit: Yes Status: Acute Assessment & Plan: home on po levaquin x 3 more days, improved Code(s): J18.9 - PNEUMONIA, UNSPECIFIED ORGANISM (3) Systolic CHF, acute on chronic Current Visit: Yes Status: Acute Assessment & Plan: add lasix 20mg daily and kcl 10meq Code(s): I50.23 - ACUTE ON CHRONIC SYSTOLIC (CONGESTIVE) HEART FAILURE (4) Seizure disorder Current Visit: Yes Status: Acute Code(s): G40.909 - EPILEPSY, UNSP, NOT INTRACTABLE, WITHOUT STATUS EPILEPTICUS (5) Weakness Current Visit: Yes Status: Acute Assessment & Plan: outpatient PT consult ordered Code(s): R53.1 - WEAKNESS - Discharge Disposition: Home, Self-Care Condition: Stable Prescriptions: New Diltiazem HCl 30 mg [Cardizem 30 MG] 30 mg PO QID #120 tablet Furosemide 20 mg [Lasix 20 mg] 20 mg PO DAILY #30 tablet levoFLOXacin [Levofloxacin] 750 mg PO DAILY #3 tablet Potassium Chloride 10 meq PO CLARIFY #30 tab Continue Primidone [Mysoline] 375 mg PO DAILY Pravastatin Sodium 40 mg PO HS Isosorbide Mononitrate [Isosorbide Mononitrate ER] 30 mg PO DAILY lamoTRIgine [Lamictal] 300 mg PO BID Metoprolol Tartrate [Lopressor] 150 mg PO BID Meclizine HCl 25 mg [Antivert 25 mg] 25 mg PO TID Losartan Potassium [Cozaar] 25 mg PO DAILY Levetiracetam [Keppra] 500 mg PO BID Apixaban [Eliquis 5 mg Tablet] 5 mg PO BID Amlodipine Besylate 5 mg [Norvasc 5 mg] 5 mg PO DAILY Outpatient Orders: Physical Therapy Eval & Treat Facility: [facility], Location: PHYSICAL THERAPY Follow up with: ANDER THOMAS [CONSULTING PHYSICIAN] - LACHO HARPER MD [Primary Care Provider] -
[2021-12-04] MEDS: MYSOLINE 50MG PO SCH (09:02)
[2021-12-04] MEDS: ELIQUIS 2.5 MG TABLET PO SCH (09:02)
[2021-12-04] MEDS: Lopressor 50 MG PO SCH (09:02)
[2021-12-04] MEDS: Klor Con 10 MEQ PO SCH (09:03)
[2021-12-04] MEDS: KEPPRA 500 MG PO SCH (09:03)
[2021-12-04] MEDS: Cozaar 50 MG PO SCH (09:03)
[2021-12-04] MEDS: Imdur 30 MG PO SCH (09:03)
[2021-12-04] MEDS: lamICTAL 100MG TABLET PO SCH (09:03)
[2021-12-04] MEDS: Cardizem 30 MG PO SCH ×2 (09:03→12:28)
[2021-12-04] MEDS: Lasix 20 MG/2 ML IV SCH (09:03)
[2021-12-04] MEDS: LEVOFLOXACIN 750MG/150ML D5W 750 MG/150 ML BAG IV SCH (09:07)
[2021-12-04 12:09] VITALS: O2SAT 92
[2021-12-04] MEDS: HYDROCODONE-CHLORPHEN ER SUSP PO PRN (12:27)
[2021-12-04 13:15] VITALS: BP 131/58; PULSE 93
== END 2021-12-04 14:00 | disposition home or self-care (01) | DRG 308 ==
LOC: ED 21:08 → ICU 12-02 01:15 → OBSVTOIN 12-02 09:03 → MED SURG 12-03 09:42
PROVIDERS: ADMIT Family Medicine; ATTEND Family Medicine
DX: I48.91 Unspecified atrial fibrillation (principal); J18.9 Pneumonia, unspecified organism; I50.23 Acute on chronic systolic (congestive) heart failure; I11.0 Hypertensive heart disease with heart failure; G40.909 Epilepsy, unspecified, not intractable, without status epilepticus; R53.1 Weakness; E78.00 Pure hypercholesterolemia, unspecified; S81.812A Laceration without foreign body, left lower leg, initial encounter; Z79.01 Long term (current) use of anticoagulants; Z79.899 Other long term (current) drug therapy; Z20.828 Contact with and (suspected) exposure to other viral communicable diseases; Z95.1 Presence of aortocoronary bypass graft
CPT/HCPCS: 0241U; 36000; 36415; 71045; 80048; 80053; 80061; 83605; 83721; 83735; 83880; 84484; 85025; 87040; 93005; 93041; 93268; 94760; 94762; 96374; 96375; 99285; J1940; J1956; J7609; A9270-GY; J3370

== ENCOUNTER 2022-01-15 17:34 | Emergency (ER) | payer MEDICARE ==
[2022-01-15] MEDS ORDERED: MORPHINE SULFATE 2 MG INJ IM ONE (18:32)
[2022-01-15] MEDS ORDERED: MORPHINE SULFATE 2 MG INJ ONE (18:38)
[2022-01-15 19:31] VITALS: BP 143/77; PULSE 56; O2SAT 97
--- NOTE | 2022-01-15 19:47 | ERPHSYRPT ---
- History of Present Illness Time Seen by Provider: 01/15/22 17:40 Patient Subjective Stated Complaint: Pt's right knee went out while walking down her steps but her sister had hold of her gait belt so she never hit the ground but it twisted her knee and she now has pain and swelling Triage Nursing Assessment: Pt brought to the ER by EMS, hypertensive, rates pain as 1/10 as long as it is laying straight, pt is on blood thinners, she was in afib just last week and was cardioverted but continues to have dizzy spells, sister states that the pt fell in the shower 2 weeks ago and injured her right knee but refused to get any medical care, pulses normal, skin n/w/d, doesn't appear to be in any distress Physician History: 56 years old female with history of atrial fibrillation on Eliquis, Marfan syndrome, issues with balance very hard and knee gave away multiple time presented in the ER with chief complaint of right knee pain after it gave away while she was trying to go upstairs and twisted. This happened twice since morning. Sharp shooting pain moderate intensity in the anterior knee more with movements and lifting and better with being still with some associated swelling of the knee. Did not hit her head, no loss of consciousness. Method of Injury: fell, twisted Occurred: this morning, this afternoon Quality: sharpness Severity of Pain-Max: moderate Severity of Pain-Current: moderate Lower Extremities Pain: knee: right Modifying Factors: Improves With: immobilization. Worsens With: movement Allergies/Adverse Reactions: Penicillins Allergy (Verified 01/15/22 17:49) unsure of reaction phenobarbital Allergy (Verified 01/15/22 17:49) phenytoin sodium [From Dilantin] Allergy (Verified 01/15/22 17:49) unsure of reaction phenytoin sodium extended [From Dilantin] Allergy (Verified 01/15/22 17:49) Home Medications: Isosorbide Mononitrate [Isosorbide Mononitrate ER] 30 mg PO DAILY 07/14/15 [History] Pravastatin Sodium 40 mg PO HS 07/14/15 [History] Primidone [Mysoline] 375 mg PO DAILY 07/14/15 [History] Apixaban [Eliquis 5 mg Tablet] 5 mg PO BID 12/02/21 [History] Levetiracetam [Keppra] 500 mg PO BID 12/02/21 [History] Losartan Potassium [Cozaar] 25 mg PO DAILY 12/02/21 [History] Metoprolol Tartrate [Lopressor] 75 mg PO BID 12/02/21 [History] lamoTRIgine [Lamictal] 300 mg PO BID 12/02/21 [History] Hydrochlorothiazide 25 mg [hydroDIURIL 25 MG] 12.5 mg PO DAILY 01/15/22 [History] Hx Tetanus, Diphtheria Vaccination/Date Given: Yes Hx Influenza Vaccination/Date Given: No Hx Pneumococcal Vaccination/Date Given: No Travel Risk - International Travel Have you traveled outside of the country in past 3 weeks: No - Coronavirus Screening Are you exhibiting any of the following symptoms?: No Close contact with a COVID-19 positive Pt in past 14-21 Days: No - Vaccine Status Have you recieved a Covid-19 vaccination: No - Review of Systems Constitutional: No Symptoms Eyes: No Symptoms Ears, Nose, & Throat: No Symptoms Respiratory: No Symptoms Cardiac: No Symptoms Abdominal/Gastrointestinal: No Symptoms Genitourinary Symptoms: No Symptoms Musculoskeletal: Fall, Injury, Joint Pain, Joint Swelling Skin: No Symptoms Neurological: No Symptoms Endocrine: No Symptoms Hematologic/Lymphatic: No Symptoms Immunological/Allergic: No Symptoms - Past Medical History Pertinent Past Medical History: Yes Neurological History: Epilepsy ENT History: No Pertinent History Cardiac History: Congestive Heart Failure, Coronary Artery Disease, High Cholesterol, Hypertension Respiratory History: CHF Endocrine Medical History: No Pertinent History Musculoskeletal History: No Pertinent History GI Medical History: No Pertinent History History: No Pertinent History Psycho-Social History: Other Female Reproductive Disorders: No Pertinent History Other Medical History: Mildly mentally delayed - Past Surgical History Past Surgical History: Yes Neuro Surgical History: No Pertinent History Cardiac: CABG Respiratory: No Pertinent History Gastrointestinal: No Pertinent History Genitourinary: No Pertinent History Musculoskeletal: No Pertinent History Female Surgical History: No Pertinent History Other Surgical History: had trigger finger surgery on right hand on middle and ring finger in Apr 2015 - Social History Smoking Status: Never smoker Exposure to second hand smoke: No Drug Use: none Patient Lives Alone: No - Nursing Vital Signs Nursing Vital Signs: Initial Vital Signs Pulse Rate 63 01/15/22 17:36 Blood Pressure 167/75 01/15/22 17:36 O2 Sat by Pulse Oximetry 96 01/15/22 17:36 Pain Scale Pain Intensity 1 - Physical Exam General Appearance: no apparent distress, alert Eyes, Ears, Nose, Throat Exam: normal ENT inspection Neck Exam: normal inspection, supple, full range of motion Cardiovascular/Respiratory Exam: normal breath sounds, regular rate/rhythm Gastrointestinal/Abdominal Exam: non-tender, soft Back Exam: normal inspection, normal range of motion Hips Exam: bilateral: non-tender, normal inspection, normal range of motion, no evidence of injury Legs Exam: bilateral leg: non-tender, normal inspection, normal range of motion, no evidence of injury Knees Exam: right knee: bone tenderness (Anterior knee and lower end of femur), pain, soft tissue tenderness, swelling, left knee: non-tender, normal inspection, normal range of motion, no evidence of injury Ankle Exam: bilateral ankle: non-tender, normal inspection, normal range of motion, no evidence of injury Foot Exam: bilateral foot: non-tender, normal inspection, normal range of motion, no evidence of injury Neuro/Tendon Exam: normal sensation Mental Status Exam: alert, oriented x 3, cooperative Skin Exam: normal color SpO2 Interpretation: normal SpO2: 97 O2 Delivery: Room Air Ordered Tests: Active Orders 24 hr Category Date Time Status KNEE (3 VIEWS) Stat Exams 01/15/22 19:15 Taken Medication Summary Discontinued Medications Generic Name Dose Route Start Last Admin Trade Name [place] PRN Reason Stop Dose Admin Morphine Sulfate 2 mg 01/15/22 18:32 01/15/22 18:39 Morphine Sulfate 2 Mg/Ml Inj IM 01/15/22 18:33 2 mg STAT ONE Administration Morphine Sulfate Confirm 01/15/22 18:38 Morphine Sulfate 2 Mg/Ml Inj Administered 01/15/22 18:39 Dose 2 mg .ROUTE .STK-MED ONE - Progress Progress: improved Progress Note: 01/15/22 19:50 She is given symptomatic treatment for pain, on reevaluation feeling better. X- rays reviewed by me did not reveal any acute findings. Official report is pending. Placed in Mio wrap and recommended using cane/walker for ambulation all the time to avoid fall and outpatient orthopedic surgery follow-up. Do not want any stronger pain medication and also patient is at high risk for fall with other serious injuries can happen because of her pain on Eliquis. Discussed signs symptoms of worsening needing return to ER which he seems understanding. Counseled pt/family regarding: diagnosis, need for follow-up, rad results - Departure Departure Disposition: Home Clinical Impression: Knee sprain, Fall Condition: Stable Critical Care Time: No Referrals: LACHO HARPER MD [Primary Care Provider] - Follow Up with PCP/3 days ORTHO - SAROJ MADRID NP [NON-STAFF PHY W/O PRIVILEGES] - Follow up/PCP as directed (Tuesday for reevaluation) Instructions: Preventing Falls in Older Adults, Knee Sprain (DC) Additional Instructions: Take Tylenol as needed for pain, use cane/walker all the time for ambulation to avoid another fall. Follow-up with primary care and orthopedic surgery for reevaluation for further investigation and management. Return to ER for any worsening.
--- NOTE | 2022-01-16 07:24 | XRAY ---
Indication: Pain and bruising. Repeat falls. Comparison: None 3 view right knee demonstrates mild medial joint space narrowing/spurring, tiny patella spurring, and mild scattered vascular calcifications. No other bony, articular, or soft tissue abnormalities.
== END 2022-01-15 19:00 | disposition home or self-care (01) ==
LOC: ED 17:34
DX: S83.91XA Sprain of unspecified site of right knee, initial encounter (principal); W10.9XXA Fall (on) (from) unspecified stairs and steps, initial encounter; Z91.81 History of falling; M25.561 Pain in right knee; Q87.40 Marfan syndrome, unspecified; E78.5 Hyperlipidemia, unspecified; I11.0 Hypertensive heart disease with heart failure; I50.9 Heart failure, unspecified; Z79.01 Long term (current) use of anticoagulants; Z79.899 Other long term (current) drug therapy; Z28.310 Unvaccinated for COVID-19
CPT/HCPCS: 73562; 96372; 99284; J2270

== ENCOUNTER 2022-03-16 11:20 | Inpatient (IN) | payer MEDICARE ==
[2022-03-16 12:25] LABS: Absolute Neutrophil Ct (ANC) 6.98 x10^3/uL (1.4-6.9); Eosinophil % 5.5 % (0.00-5.0); Eosinophil (Absolute #) 0.49 x10^3/uL (0-0.5); Hematocrit 34.1 % (35-47); Lymphocytes % 7.8 % (24.0-44.0); Mean Cell Volume 93.7 fL (78-100); Mean Corpuscular Hemoglobin 30.2 pg (26-32); Mean Corpuscular Hgb Concent. 32.3 g/dL (32-36); Mean Platelet Volume 11.3 fL (7.5-11.0); Monocyte (Absolute #) 0.67 x10^3/uL (0.0-1.3); Monocytes % 7.5 % (0.0-12.0); Neutrophil % 77.8 % (36.0-66.0); Platelet Count 194 x10^3/uL (150-450); Red Blood Count 3.64 x10^6/uL (4.1-5.4); Red Cell Distribution Width 13.6 % (11.5-14.0)
[2022-03-16 12:36] LABS: ALKALINE PHOSPHATASE 76 U/L (38-126); ANION GAP 12.4 MEQ/L (5-15); BLOOD UREA NITROGEN 24 mg/dL (7-17); CHLORIDE 98 mmol/L (98-107); Calcium 9.1 mg/dL (8.4-10.2); Carbon Dioxide 30 mmol/L (22-30); Creatinine 1 0.85 mg/dL (0.52-1.04); EST GLOMERULAR FILTRATION RATE > 60.0 ML/MIN; Glucose 102 mg/dL (74-106); Potassium 3.4 mmol/L (3.5-5.1); SGOT/AST 25 U/L (14-36); SGPT/ALT 12 U/L (0-35); SODIUM 136 mmol/L (137-145); Total Protein 8.3 g/dL (6.3-8.2)
--- NOTE | 2022-03-16 12:41 | XRAY ---
Indication: Cough. Pneumonia. Suspect Covid 19 Comparison: December 01, 2021 Portable chest again demonstrates hazy right lung, less than before, and new left lung airspace disease. Remaining heart and bony thorax unremarkable again with incidental CABG.
[2022-03-16] MEDS ORDERED: Klor Con PO ONE ×2 (12:52→12:59)
[2022-03-16] MEDS ORDERED: DUONEB 0.5-3 MG/3 ml Neb IH ONE ×2 (12:53→13:01)
--- NOTE | 2022-03-16 12:53 | ERPHSYRPT ---
- History of Present Illness Time Seen by Provider: 03/16/22 11:30 Source: patient Exam Limitations: no limitations Patient Subjective Stated Complaint: PT TO ER WITH EMS FOR COMPLAINTS OF SOB. PT STATES SHE HAS BEEN SOB WITH COUGH X 5 DAYS. PT ALSO STATES SHE HAS BEEN WEAKER. PT DENIES WEARING ANY O2 NORMALLY. PT STATES SHE HASNT BEEN AROUND ANYONE THAT HAS BEEN SICK RECENTLY. Triage Nursing Assessment: PT TO ER BY EMS FOR SHORTNESS OF BREATH. PT STATES SHE HAS BEEN FEELING SICK X 5 DAYS. PT WITH WEAKNESS AND COUGH. PT APPEARS TO BE SOB UPON ARRIVAL. 85% ON RA. PT HAD DUONEB AND SOLUMEDROL ENROUTE. Physician History: Patient is a 56-year-old female presents to emergency department via EMS for evaluation of cough shortness of breath and generalized weakness. Patient states her symptoms started approximately 5 days ago and have been progressive. Patient received Solu-Medrol 125 mg and Zofran 4 mg IV in route. Patient also received 1 DuoNeb. EMS reports that patient was hypoxic at 85% upon their arrival to patient's residence. Patient was started on supplemental oxygen via nasal cannula. Patient does not have a history of COPD. She denies requiring oxygen at home. Patient's symptoms have been progressive over the past 5 days. No specific worsening or improving factors. Patient voices no other complaints or concerns at this time. Portions of this note were created with voice recognition technology. There may be grammatical, spelling, punctuation or sound alike errors Timing/Duration: day(s) (5 days) Severity: moderate Modifying Factors: Improves With: nothing Associated Symptoms: cough, weakness, No nausea, No vomiting, No diaphoresis, No chest pain, No fever, No syncope Allergies/Adverse Reactions: Penicillins Allergy (Verified 03/16/22 11:35) unsure of reaction phenobarbital Allergy (Verified 03/16/22 11:35) phenytoin sodium [From Dilantin] Allergy (Verified 03/16/22 11:35) unsure of reaction phenytoin sodium extended [From Dilantin] Allergy (Verified 03/16/22 11:35) Home Medications: Isosorbide Mononitrate [Isosorbide Mononitrate ER] 30 mg PO DAILY 07/14/15 [History] Pravastatin Sodium 40 mg PO HS 07/14/15 [History] Primidone [Mysoline] 375 mg PO DAILY 07/14/15 [History] Apixaban [Eliquis 5 mg Tablet] 5 mg PO BID 12/02/21 [History] Levetiracetam [Keppra] 500 mg PO BID 12/02/21 [History] Metoprolol Tartrate [Lopressor] 75 mg PO BID 12/02/21 [History] lamoTRIgine [Lamictal] 300 mg PO BID 12/02/21 [History] Hydrochlorothiazide 25 mg [hydroDIURIL 25 MG] 12.5 mg PO DAILY 01/15/22 [History] Hx Tetanus, Diphtheria Vaccination/Date Given: Yes Hx Influenza Vaccination/Date Given: No Hx Pneumococcal Vaccination/Date Given: No Travel Risk - International Travel Have you traveled outside of the country in past 3 weeks: No - Coronavirus Screening Are you exhibiting any of the following symptoms?: Yes Symptoms: Cough: New Onset, Shortness of Breath Close contact with a COVID-19 positive Pt in past 14-21 Days: No - Vaccine Status Have you recieved a Covid-19 vaccination: No - Review of Systems Constitutional: No Symptoms, No Fever, No Chills Eyes: No Symptoms Ears, Nose, & Throat: No Symptoms Respiratory: No Symptoms, No Cough, No Dyspnea Cardiac: No Symptoms, No Chest Pain, No Edema, No Syncope Abdominal/Gastrointestinal: No Symptoms, No Abdominal Pain, No Nausea, No Vomiting, No Diarrhea Genitourinary Symptoms: No Symptoms, No Dysuria Musculoskeletal: No Symptoms, No Back Pain, No Neck Pain Skin: No Symptoms, No Rash Neurological: No Symptoms, No Dizziness, No Focal Weakness, No Sensory Changes Psychological: No Symptoms Endocrine: No Symptoms Hematologic/Lymphatic: No Symptoms Immunological/Allergic: No Symptoms All Other Systems: Reviewed and Negative - Past Medical History Pertinent Past Medical History: Yes Neurological History: Epilepsy ENT History: No Pertinent History Cardiac History: Congestive Heart Failure, Coronary Artery Disease, High Cholesterol, Hypertension Respiratory History: CHF Endocrine Medical History: No Pertinent History Musculoskeletal History: No Pertinent History GI Medical History: No Pertinent History History: No Pertinent History Psycho-Social History: Other Female Reproductive Disorders: No Pertinent History Other Medical History: Mildly mentally delayed - Past Surgical History Past Surgical History: Yes Neuro Surgical History: No Pertinent History Cardiac: CABG Respiratory: No Pertinent History Gastrointestinal: No Pertinent History Genitourinary: No Pertinent History Musculoskeletal: No Pertinent History Female Surgical History: No Pertinent History Other Surgical History: had trigger finger surgery on right hand on middle and ring finger in Apr 2015 - Social History Smoking Status: Never smoker Exposure to second hand smoke: No Drug Use: none Patient Lives Alone: No - Nursing Vital Signs Nursing Vital Signs: Initial Vital Signs Temperature 98.6 F 03/16/22 11:21 Pulse Rate 69 03/16/22 11:21 Respiratory Rate 18 03/16/22 11:21 Blood Pressure 161/73 03/16/22 11:21 O2 Sat by Pulse Oximetry 85 L 03/16/22 11:21 Pain Scale Pain Intensity 8 - Physical Exam General Appearance: no apparent distress, alert Eye Exam: PERRL/EOMI, eyes nml inspection Ears, Nose, Throat Exam: normal ENT inspection, TMs normal, pharynx normal, moist mucous membranes Neck Exam: normal inspection, non-tender, supple, full range of motion Respiratory Exam: airway intact, rhonchi, wheezing, other, No respiratory distress Cardiovascular Exam: regular rate/rhythm, normal heart sounds, normal peripheral pulses Gastrointestinal/Abdomen Exam: soft, normal bowel sounds, No tenderness, No mass Back Exam: normal inspection, normal range of motion, No CVA tenderness, No vertebral tenderness Extremity Exam: normal inspection, normal range of motion, pelvis stable Neurologic Exam: alert, oriented x 3, cooperative, normal mood/affect, nml cerebellar function, nml station & gait, sensation nml, No motor deficits Skin Exam: normal color, warm, dry, No rash Lymphatic Exam: No adenopathy SpO2 Interpretation: normal SpO2: 97 O2 Delivery: Room Air - Course Nursing assessment & vital signs reviewed: Yes EKG Interpreted by Me: RATE (65), Sinus Rhythm, NORMAL AXIS, NORMAL INTERVALS - Radiology Exams Chest X-ray Interpretation: Teleradiologist Report (New left lung airspace disease) Ordered Tests: Active Orders 24 hr Category Date Time Status EKG-ER Only STAT Care 03/16/22 11:57 Active IV Insertion STAT Care 03/16/22 11:57 Active Pulse Oximetry (ED) STAT Care 03/16/22 11:57 Active CHEST 1 VIEW (PORTABLE) Stat Exams 03/16/22 12:27 Completed BLOOD CULTURE Stat Lab 03/16/22 12:15 Received CBC W DIFF Stat Lab 03/16/22 12:11 Completed CMP Stat Lab 03/16/22 12:11 Completed D-DIMER QUANTITATIVE Stat Lab 03/16/22 13:06 Completed Lactic Acid Stat Lab 03/16/22 12:15 Completed UA W/RFX CULTURE Stat Lab 03/16/22 Ordered Respiratory Therapy Assessment ONCE RT 03/16/22 13:25 Active Transfer Order Routine Transfer 03/16/22 Ordered Medication Summary Generic Name Dose Route Start Last Admin Trade Name Aldairq PRN Reason Stop Dose Admin Magnesium Sulfate/Dextrose 100 mls @ 100 mls/hr 03/16/22 13:00 03/16/22 13:38 Magnesium 1 Gm / 100 Ml D5w IV 03/16/22 14:59 100 mls/hr Q1H MARIAELENA Administration Ceftriaxone Sodium/Dextrose 2 g in 50 mls @ 100 mls/hr 03/17/22 10:00 Rocephin 2 Gm-D5w 50ml Bag IV 03/20/22 09:59 [id number] MARIAELENA Discontinued Medications Generic Name Dose Route Start Last Admin Trade Name Aldairq PRN Reason Stop Dose Admin Albuterol/Ipratropium 3 ml 03/16/22 12:53 03/16/22 13:05 Ipratropium/Albuterol Sulfate 3 Ml Ampul.Neb IH 03/16/22 12:54 3 ml STAT ONE Administration Albuterol/Ipratropium Confirm 03/16/22 13:01 Ipratropium/Albuterol Sulfate 3 Ml Ampul.Neb Administered 03/16/22 13:02 Dose 3 ml IH .STK-MED ONE Azithromycin 500 mg in 250 mls @ 250 mls/hr 03/16/22 13:02 Zithromax 500 Mg/ 250 Ml Nacl Premix IV 03/16/22 14:01 STAT STA Potassium Chloride 40 meq 03/16/22 12:52 03/16/22 13:00 Potassium Chloride Tab 10 Meq Tab PO 03/16/22 12:53 40 meq STAT ONE Administration Potassium Chloride Confirm 03/16/22 12:59 Potassium Chloride Tab 10 Meq Tab Administered 03/16/22 13:00 Dose 40 meq PO .STK-MED ONE Lab/Rad Data: Laboratory Result Diagrams 03/16/22 12:11 03/16/22 12:11 Laboratory Results 03/16/22 03/16/2203/16/22 Range/Units 13:06 12:15 12:11 WBC (4.0-10.5) x10^3/uL RBC (4.1-5.4) x10^6/uL Hgb (12.0-16.0) g/dL Hct (35-47) % MCV (78-100) fL MCH (26-32) pg MCHC (32-36) g/dL RDW (11.5-14.0) % Plt Count (150-450) x10^3/uL MPV (7.5-11.0) fL Gran % (36.0-66.0) % Immature Gran % (Auto) (0.00-0.4) % Nucleat RBC Rel Count (0.00-0.1) % Eos # (Auto) (0-0.5) x10^3/uL Immature Gran # (Auto) (0.00-0.03) x10^3u/L Absolute Lymphs (auto) (1.0-4.6) x10^3/uL Absolute Monos (auto) (0.0-1.3) x10^3/uL Absolute Nucleated RBC (0.00-0.01) x10^3u/L Lymphocytes % (24.0-44.0) % Monocytes % (0.0-12.0) % Eosinophils % (0.00-5.0) % Basophils % (0.0-0.4) % Absolute Granulocytes (1.4-6.9) x10^3/uL Basophils # (0-0.4) x10^3/uL D-Dimer 0.38 (0.0-0.50) mg/L Sodium 136 L (137-145) mmol/L Potassium 3.4 L (3.5-5.1) mmol/L Chloride 98 (98-107) mmol/L Carbon Dioxide 30 (22-30) mmol/L Anion Gap 12.4 (5-15) MEQ/L BUN 24 H (7-17) mg/dL Creatinine 0.85 (0.52-1.04) mg/dL Estimated GFR > 60.0 ML/MIN Glucose 102 (74-106) mg/dL Lactic Acid 1.1 (0.4-2.0) Calcium 9.1 (8.4-10.2) mg/dL Total Bilirubin 1.20 (0.2-1.3) mg/dL AST 25 (14-36) U/L ALT 12 (0-35) U/L Alkaline Phosphatase 76 (38-126) U/L Serum Total Protein 8.3 H (6.3-8.2) g/dL Albumin 4.0 (3.5-5.0) g/dL Influenza Type A Ag (NEGATIVE) Influenza Type B Ag (NEGATIVE) RSV (PCR) (Negative) SARS-CoV-2 (PCR) (NEGATIVE) 03/16/22 03/16/22 Range/Units 12:11 12:07 WBC 9.0 (4.0-10.5) x10^3/uL RBC 3.64 L (4.1-5.4) x10^6/uL Hgb 11.0 L (12.0-16.0) g/dL Hct 34.1 L (35-47) % MCV 93.7 (78-100) fL MCH 30.2 (26-32) pg MCHC 32.3 (32-36) g/dL RDW 13.6 (11.5-14.0) % Plt Count 194 (150-450) x10^3/uL MPV 11.3 H (7.5-11.0) fL Gran % 77.8 H (36.0-66.0) % Immature Gran % (Auto) 0.3 (0.00-0.4) % Nucleat RBC Rel Count 0.0 (0.00-0.1) % Eos # (Auto) 0.49 (0-0.5) x10^3/uL Immature Gran # (Auto) 0.03 (0.00-0.03) x10^3u/L Absolute Lymphs (auto) 0.70 L (1.0-4.6) x10^3/uL Absolute Monos (auto) 0.67 (0.0-1.3) x10^3/uL Absolute Nucleated RBC 0.00 (0.00-0.01) x10^3u/L Lymphocytes % 7.8 L (24.0-44.0) % Monocytes % 7.5 (0.0-12.0) % Eosinophils % 5.5 H (0.00-5.0) % Basophils % 1.1 (0.0-0.4) % Absolute Granulocytes 6.98 H (1.4-6.9) x10^3/uL Basophils # 0.10 (0-0.4) x10^3/uL D-Dimer (0.0-0.50) mg/L Sodium (137-145) mmol/L Potassium (3.5-5.1) mmol/L Chloride (98-107) mmol/L Carbon Dioxide (22-30) mmol/L Anion Gap (5-15) MEQ/L BUN (7-17) mg/dL Creatinine (0.52-1.04) mg/dL Estimated GFR ML/MIN Glucose (74-106) mg/dL Lactic Acid (0.4-2.0) Calcium (8.4-10.2) mg/dL Total Bilirubin (0.2-1.3) mg/dL AST (14-36) U/L ALT (0-35) U/L Alkaline Phosphatase (38-126) U/L Serum Total Protein (6.3-8.2) g/dL Albumin (3.5-5.0) g/dL Influenza Type A Ag NEGATIVE (NEGATIVE) Influenza Type B Ag NEGATIVE (NEGATIVE) RSV (PCR) NEGATIVE (Negative) SARS-CoV-2 (PCR) NEGATIVE (NEGATIVE) - Progress Progress: improved Progress Note: Patient reassessed. She feels much better since oxygen has been applied. Work- up reveals a pneumonia. Patient also hypoxic. Blood cultures obtained. IV antibiotics infused. D-dimer negative. patient will require additional treatment occluding monitoring and IV antibiotics. Case discussed with Dr. Shrestha covering Dr. Harper. Dr. Shrestha accepts admission to observation. Plan of care di scussed with patient. She agrees to admission at [facility]. COVID test negative. Plan of care discussed with family who is at bedside. They voiced no other complaints or concerns. Portions of this note were created with voice recognition technology. There may be grammatical, spelling, punctuation or sound alike errors 03/16/22 14:17 Discussed with : Bandar Will see patient in: hospital (observation) Counseled pt/family regarding: lab results, diagnosis, need for follow-up, rad results - Departure Departure Disposition: Observation Clinical Impression: Hypoxia, Hypokalemia, Generalized weakness, Pneumonia, Normocytic anemia Condition: Stable Critical Care Time: No Referrals: LACHO HARPER MD [Primary Care Provider] - Follow up/PCP as directed
[2022-03-16] MEDS: Magnesium 1 Gm / 100 Ml D5W*** 100 ML IV SCH ×2 (13:00→13:38)
[2022-03-16] MEDS ORDERED: Magnesium 1 Gm / 100 Ml D5W*** 100 ML IV ONE ×2 (13:00→13:37)
[2022-03-16] MEDS ORDERED: Zithromax 500 MG/ 250 ML NaCl Premix 500 MG/250 ML IVPB IV STA (13:02)
[2022-03-16 13:51] LABS: INFLUENZA A NEGATIVE (NEGATIVE); INFLUENZA B NEGATIVE (NEGATIVE); RESPIRATORY SYNCTIAL VIRUS NEGATIVE (Negative); SARS-CoV-2 Xpert Express NEGATIVE (NEGATIVE)
[2022-03-16] MEDS ORDERED: Zithromax 500 MG/ 250 ML NaCl Premix 500 MG/250 ML IVPB IV ONE (14:14)
[2022-03-16] MEDS ORDERED: ROCEPHIN 2 Gm-D5w 50ML BAG** 2 G/50 ML IVPB IV ONE (15:00)
[2022-03-16] MEDS: DUONEB 0.5-3 MG/3 ml Neb IH SCH ×3 (15:30→22:24)
[2022-03-16] MEDS ORDERED: NON-FORMULARY ITEM (Metoprolol Tartrate [Lopressor] 100 MG Tablet) PO SCH (22:00)
[2022-03-16] MEDS ORDERED: NON-FORMULARY ITEM (Apixaban*** [Eliquis 5 Mg Tablet***] 5 MG Tablet) PO SCH (22:00)
[2022-03-16] MEDS ORDERED: LAMOTRIGINE 150 MG PO SCH (22:00)
[2022-03-16] MEDS ORDERED: NON-FORMULARY ITEM (Pravastatin Sodium [Pravastatin Sodium] 40 MG Tablet) PO SCH (22:00)
[2022-03-16 22:47] LABS: Appearance CLEAR (CLEAR); Bacteria RARE /HPF (NEGATIVE); Bilirubin SMALL (NEGATIVE); Epithelial Cells RARE /HPF (FEW); Glucose NEGATIVE (NEGATIVE); Ketones NEGATIVE (NEGATIVE); Mucus SLIGHT /HPF (NEGATIVE); Ph 5.5 (5-6); Protein,Urine Dip 30 (Negative); RBC MODERATE Ery/ul (0-5); Specific Gravity 1.025 (1.005-1.025); Urobilinogen 2 mg/dL (0-1)
[2022-03-16 22:48] LABS: Dipstick done @ ? MAIN LAB; Nitrite NEGATIVE (NEGATIVE); Urine Cultured Indicated? YES
[2022-03-16] MEDS: Cardizem 30 MG PO SCH (22:48)
[2022-03-16] MEDS: KEPPRA PO SCH (22:48)
[2022-03-16] MEDS: lamICTAL 100MG TABLET PO SCH (22:48)
[2022-03-16] MEDS: Lopressor 50 MG PO SCH (22:49)
[2022-03-16] MEDS: ELIQUIS 2.5 MG TABLET PO SCH (22:50)
[2022-03-16] MEDS: ZOCOR 20MG PO SCH (22:51)
[2022-03-17] MEDS: DUONEB 0.5-3 MG/3 ml Neb IH SCH ×6 (02:55→23:07)
[2022-03-17 05:14] LABS: Hematocrit 31.4 % (35-47); Hemoglobin 10.1 g/dL (12.0-16.0); Mean Corpuscular Hemoglobin 30.2 pg (26-32); Mean Corpuscular Hgb Concent. 32.2 g/dL (32-36); Mean Platelet Volume 11.4 fL (7.5-11.0); Platelet Count 190 x10^3/uL (150-450); Red Blood Count 3.34 x10^6/uL (4.1-5.4); Red Cell Distribution Width 13.5 % (11.5-14.0); White Blood Count 8.6 x10^3/uL (4.0-10.5)
[2022-03-17 05:41] LABS: ALBUMIN 3.6 g/dL (3.5-5.0); ALKALINE PHOSPHATASE 77 U/L (38-126); ANION GAP 9.8 MEQ/L (5-15); BLOOD UREA NITROGEN 26 mg/dL (7-17); CHLORIDE 95 mmol/L (98-107); Calcium 8.6 mg/dL (8.4-10.2); Carbon Dioxide 32 mmol/L (22-30); Creatinine 1 0.92 mg/dL (0.52-1.04); EST GLOMERULAR FILTRATION RATE > 60.0 ML/MIN; Glucose 100 mg/dL (74-106); SGOT/AST 28 U/L (14-36); SGPT/ALT 12 U/L (0-35); SODIUM 133 mmol/L (137-145); Total Protein 7.5 g/dL (6.3-8.2)
[2022-03-17] MEDS: Imdur 30 MG PO SCH (08:14)
[2022-03-17] MEDS: Lopressor 50 MG PO SCH ×2 (08:14→21:08)
[2022-03-17] MEDS ORDERED: K-LYTE PO ONE (08:48)
[2022-03-17] MEDS: ROCEPHIN 1 Gm-D5w 50 ml Bag** 1 G/50 ML IVPB IV SCH (08:49)
[2022-03-17] MEDS: Zithromax 500 MG/ 250 ML NaCl Premix 500 MG/250 ML IVPB IV SCH (08:50)
[2022-03-17] MEDS: Cardizem 30 MG PO SCH ×2 (08:51→14:03)
[2022-03-17] MEDS: lamICTAL 100MG TABLET PO SCH ×2 (08:51→21:07)
[2022-03-17] MEDS: MYSOLINE 50MG PO SCH (08:51)
--- NOTE | 2022-03-17 08:51 | PCM.HP ---
History of Present Illness - Chief Complaint Chief Complaint: hypoxia, Pneumonia History of Present Illness: is a 56 year old female who persented to the ER with a complaint of shortness of breath and cough, her cough was nonproductive but she felt feverish. symptoms present x 5 days and worsening. no chest pain. - Review of Systems Constitutional: No Symptoms Respiratory: Cough, Short Of Breath Cardiac: No Chest Pain, No Edema, No Syncope Abdominal/Gastrointestinal: No Abdominal Pain, No Nausea, No Vomiting, No Diarrhea Genitourinary Symptoms: No Dysuria Skin: No Rash All Other Systems: Reviewed and Negative Medications & Allergies Home Medications: Home Medication List Isosorbide Mononitrate [Isosorbide Mononitrate ER] 30 mg PO DAILY 07/14/15 [History Confirmed 03/16/22] Pravastatin Sodium 40 mg PO HS 07/14/15 [History Confirmed 03/16/22] Primidone [Mysoline] 375 mg PO DAILY 07/14/15 [History Confirmed 03/16/22] Apixaban [Eliquis 5 mg Tablet] 5 mg PO BID 12/02/21 [History Confirmed 03/16/22] Levetiracetam [Keppra] 500 mg PO BID 12/02/21 [History Confirmed 03/16/22] Metoprolol Tartrate [Lopressor] 50 mg PO BID 12/02/21 [History Confirmed 03/16/22] lamoTRIgine [Lamictal] 300 mg PO BID 12/02/21 [History Confirmed 03/16/22] Hydrochlorothiazide 25 mg [hydroDIURIL 25 MG] 12.5 mg PO DAILY 01/15/22 [History Confirmed 03/16/22] dilTIAZem HCL [Diltiazem HCl] 30 mg PO QID 03/16/22 [History Confirmed 03/16/22] Allergies/Adverse Reactions: Allergies Allergy/AdvReac Type Severity Reaction Status Date / Time Penicillins Allergy Verified 03/16/22 11:35 phenobarbital Allergy Verified 03/16/22 11:35 phenytoin sodium Allergy Verified 03/16/22 11:35 [From Dilantin] phenytoin sodium extended Allergy Verified 03/16/22 11:35 [From Dilantin] - Past Medical History Past Medical History: Yes Neurological History: Epilepsy ENT History: No Pertinent History Cardiac History: Congestive Heart Failure, Coronary Artery Disease, High Cholesterol, Hypertension Respiratory History: CHF Endocrine Medical History: No Pertinent History Musculoskelatal History: No Pertinent History GI Medical History: No Pertinent History History: No Pertinent History Pyscho-Social History: Other Reproductive Disorders: No Pertinent History Comment: Mildly mentally delayed - Past Surgical History Past Surgical History: Yes Neuro Surgical History: No Pertinent History Cardiac History: CABG Respiratory Surgery: No Pertinent History GI Surgical History: No Pertinent History Genitourinary Surgical Hx: No Pertinent History Musculskeletal Surgical Hx: No Pertinent History Female Surgical History: No Pertinent History Other Surgical History: had trigger finger surgery on right hand on middle and ring finger in Apr 2015 - Social History Smoking Status: Never smoker Exposure to second hand smoke: No Alcohol: None Drug Use: none - Physical Exam Vital Signs: Vital Signs - 24 hr Temp Pulse Resp BP Pulse Ox 03/17/22 08:00 98.6 F 77 25 H 99/47 94 L 03/17/22 03:41 97.8 F 64 20 105/52 93 L 03/17/22 02:55 65 18 93 L 03/16/22 23:45 98.0 F 76 24 120/56 95 03/16/22 22:24 81 18 95 03/16/22 19:51 97.7 F 72 22 101/50 97 03/16/22 18:57 73 18 98 03/16/22 17:09 92 L 03/16/22 15:05 97.9 F 68 16 128/60 92 L 03/16/22 14:30 97.9 F 68 16 128/60 92 L 03/16/22 14:20 97 03/16/22 14:19 67 19 124/57 98 03/16/22 13:25 64 28 H 137/67 94 L 03/16/22 13:10 94 H 24 97 03/16/22 12:25 61 29 H 150/64 97 03/16/22 11:21 98.6 F 69 35 H 161/73 85 L General Appearance: no apparent distress, alert, obese Neurologic Exam: alert, oriented x 3 Respiratory Exam: crackles/rales, rhonchi Cardiovascular Exam: regular rate/rhythm, normal heart sounds, normal peripheral pulses Gastrointestinal/Abdomen Exam: soft, normal bowel sounds, No tenderness, No mass Extremity Exam: normal inspection, normal range of motion, pelvis stable Skin Exam: normal color, warm, dry, No rash Results - Labs Lab/Micro Results: Lab Results-Last 24 Hours 03/16/22 03/16/22 03/16/22 Range/Units 12:07 12:11 12:11 WBC 9.0 (4.0-10.5) x10^3/uL RBC 3.64 L (4.1-5.4) x10^6/uL Hgb 11.0 L (12.0-16.0) g/dL Hct 34.1 L (35-47) % MCV 93.7 (78-100) fL MCH 30.2 (26-32) pg MCHC 32.3 (32-36) g/dL RDW 13.6 (11.5-14.0) % Plt Count 194 (150-450) x10^3/uL MPV 11.3 H (7.5-11.0) fL Gran % 77.8 H (36.0-66.0) % Immature Gran % (Auto) 0.3 (0.00-0.4) % Nucleat RBC Rel Count 0.0 (0.00-0.1) % Eos # (Auto) 0.49 (0-0.5) x10^3/uL Immature Gran # (Auto) 0.03 (0.00-0.03) x10^3u/L Absolute Lymphs (auto) 0.70 L (1.0-4.6) x10^3/uL Absolute Monos (auto) 0.67 (0.0-1.3) x10^3/uL Absolute Nucleated RBC 0.00 (0.00-0.01) x10^3u/L Lymphocytes % 7.8 L (24.0-44.0) % Monocytes % 7.5 (0.0-12.0) % Eosinophils % 5.5 H (0.00-5.0) % Basophils % 1.1 (0.0-0.4) % Absolute Granulocytes 6.98 H (1.4-6.9) x10^3/uL Basophils # 0.10 (0-0.4) x10^3/uL D-Dimer (0.0-0.50) mg/L Sodium 136 L (137-145) mmol/L Potassium 3.4 L (3.5-5.1) mmol/L Chloride 98 (98-107) mmol/L Carbon Dioxide 30 (22-30) mmol/L Anion Gap 12.4 (5-15) MEQ/L BUN 24 H (7-17) mg/dL Creatinine 0.85 (0.52-1.04) mg/dL Estimated GFR > 60.0 ML/MIN Glucose 102 (74-106) mg/dL Lactic Acid (0.4-2.0) Calcium 9.1 (8.4-10.2) mg/dL Total Bilirubin 1.20 (0.2-1.3) mg/dL AST 25 (14-36) U/L ALT 12 (0-35) U/L Alkaline Phosphatase 76 (38-126) U/L Serum Total Protein 8.3 H (6.3-8.2) g/dL Albumin 4.0 (3.5-5.0) g/dL Urinalys Dipstick Clnc Urine Color (YELLOW) Urine Appearance (CLEAR) Urine pH (5-6) Ur Specific [place] (1.005-1.025) POC Urine Protein Conf (Negative) Urine Ketones (NEGATIVE) Urine Nitrite (NEGATIVE) Urine Bilirubin (NEGATIVE) Urine Urobilinogen (0-1) mg/dL Urine Leukocytes (NEGATIVE) Urine WBC (Auto) (0-5) /HPF Urine RBC (Auto) (0-2) /HPF U Hyaline Cast (Auto) (0-2) /LPF U Epithel Cells (Auto) (FEW) /HPF Urine Bacteria (Auto) (NEGATIVE) /HPF Urine RBC (0-5) Ladarius/ul Urine Mucus (Auto) (NEGATIVE) /HPF Ur Culture Indicated? Urine Glucose (NEGATIVE) mg/dL Influenza Type A Ag NEGATIVE (NEGATIVE) Influenza Type B Ag NEGATIVE (NEGATIVE) RSV (PCR) NEGATIVE (Negative) SARS-CoV-2 (PCR) NEGATIVE (NEGATIVE) 03/16/22 03/16/22 03/16/22 Range/Units 12:15 13:06 14:30 WBC (4.0-10.5) x10^3/uL RBC (4.1-5.4) x10^6/uL Hgb (12.0-16.0) g/dL Hct (35-47) % MCV (78-100) fL MCH (26-32) pg MCHC (32-36) g/dL RDW (11.5-14.0) % Plt Count (150-450) x10^3/uL MPV (7.5-11.0) fL Gran % (36.0-66.0) % Immature Gran % (Auto) (0.00-0.4) % Nucleat RBC Rel Count (0.00-0.1) % Eos # (Auto) (0-0.5) x10^3/uL Immature Gran # (Auto) (0.00-0.03) x10^3u/L Absolute Lymphs (auto) (1.0-4.6) x10^3/uL Absolute Monos (auto) (0.0-1.3) x10^3/uL Absolute Nucleated RBC (0.00-0.01) x10^3u/L Lymphocytes % (24.0-44.0) % Monocytes % (0.0-12.0) % Eosinophils % (0.00-5.0) % Basophils % (0.0-0.4) % Absolute Granulocytes (1.4-6.9) x10^3/uL Basophils # (0-0.4) x10^3/uL D-Dimer 0.38 (0.0-0.50) mg/L Sodium (137-145) mmol/L Potassium (3.5-5.1) mmol/L Chloride (98-107) mmol/L Carbon Dioxide (22-30) mmol/L Anion Gap (5-15) MEQ/L BUN (7-17) mg/dL Creatinine (0.52-1.04) mg/dL Estimated GFR ML/MIN Glucose (74-106) mg/dL Lactic Acid 1.1 (0.4-2.0) Calcium (8.4-10.2) mg/dL Total Bilirubin (0.2-1.3) mg/dL AST (14-36) U/L ALT (0-35) U/L Alkaline Phosphatase (38-126) U/L Serum Total Protein (6.3-8.2) g/dL Albumin (3.5-5.0) g/dL Urinalys Dipstick Clnc MAIN LAB Urine Color CRISTY (YELLOW) Urine Appearance CLEAR (CLEAR) Urine pH 5.5 (5-6) Ur Specific [place] 1.025 (1.005-1.025) POC Urine Protein Conf 30 (Negative) Urine Ketones NEGATIVE (NEGATIVE) Urine Nitrite NEGATIVE (NEGATIVE) Urine Bilirubin SMALL (NEGATIVE) Urine Urobilinogen 2 (0-1) mg/dL Urine Leukocytes NEGATIVE (NEGATIVE) Urine WBC (Auto) 3-5 (0-5) /HPF Urine RBC (Auto) 16-25 (0-2) /HPF U Hyaline Cast (Auto) 6-10 (0-2) /LPF U Epithel Cells (Auto) RARE (FEW) /HPF Urine Bacteria (Auto) RARE (NEGATIVE) /HPF Urine RBC MODERATE (0-5) Ladarius/ul Urine Mucus (Auto) SLIGHT (NEGATIVE) /HPF Ur Culture Indicated? YES Urine Glucose NEGATIVE (NEGATIVE) mg/dL Influenza Type A Ag (NEGATIVE) Influenza Type B Ag (NEGATIVE) RSV (PCR) (Negative) SARS-CoV-2 (PCR) (NEGATIVE) 03/17/22 03/17/22 Range/Units 04:35 04:35 WBC 8.6 (4.0-10.5) x10^3/uL RBC 3.34 L (4.1-5.4) x10^6/uL Hgb 10.1 L (12.0-16.0) g/dL Hct 31.4 L (35-47) % MCV 94.0 (78-100) fL MCH 30.2 (26-32) pg MCHC 32.2 (32-36) g/dL RDW 13.5 (11.5-14.0) % Plt Count 190 (150-450) x10^3/uL MPV 11.4 H (7.5-11.0) fL Gran % (36.0-66.0) % Immature Gran % (Auto) (0.00-0.4) % Nucleat RBC Rel Count (0.00-0.1) % Eos # (Auto) (0-0.5) x10^3/uL Immature Gran # (Auto) (0.00-0.03) x10^3u/L Absolute Lymphs (auto) (1.0-4.6) x10^3/uL Absolute Monos (auto) (0.0-1.3) x10^3/uL Absolute Nucleated RBC (0.00-0.01) x10^3u/L Lymphocytes % (24.0-44.0) % Monocytes % (0.0-12.0) % Eosinophils % (0.00-5.0) % Basophils % (0.0-0.4) % Absolute Granulocytes (1.4-6.9) x10^3/uL Basophils # (0-0.4) x10^3/uL D-Dimer (0.0-0.50) mg/L Sodium 133 L (137-145) mmol/L Potassium 3.0 L* (3.5-5.1) mmol/L Chloride 95 L (98-107) mmol/L Carbon Dioxide 32 H (22-30) mmol/L Anion Gap 9.8 (5-15) MEQ/L BUN 26 H (7-17) mg/dL Creatinine 0.92 (0.52-1.04) mg/dL Estimated GFR > 60.0 ML/MIN Glucose 100 (74-106) mg/dL Lactic Acid (0.4-2.0) Calcium 8.6 (8.4-10.2) mg/dL Total Bilirubin 0.70 (0.2-1.3) mg/dL AST 28 (14-36) U/L ALT 12 (0-35) U/L Alkaline Phosphatase 77 (38-126) U/L Serum Total Protein 7.5 (6.3-8.2) g/dL Albumin 3.6 (3.5-5.0) g/dL Urinalys Dipstick Clnc Urine Color (YELLOW) Urine Appearance (CLEAR) Urine pH (5-6) Ur Specific [place] (1.005-1.025) POC Urine Protein Conf (Negative) Urine Ketones (NEGATIVE) Urine Nitrite (NEGATIVE) Urine Bilirubin (NEGATIVE) Urine Urobilinogen (0-1) mg/dL Urine Leukocytes (NEGATIVE) Urine WBC (Auto) (0-5) /HPF Urine RBC (Auto) (0-2) /HPF U Hyaline Cast (Auto) (0-2) /LPF U Epithel Cells (Auto) (FEW) /HPF Urine Bacteria (Auto) (NEGATIVE) /HPF Urine RBC (0-5) Ladarius/ul Urine Mucus (Auto) (NEGATIVE) /HPF Ur Culture Indicated? Urine Glucose (NEGATIVE) mg/dL Influenza Type A Ag (NEGATIVE) Influenza Type B Ag (NEGATIVE) RSV (PCR) (Negative) SARS-CoV-2 (PCR) (NEGATIVE) - Radiology Impressions Radiology Exams & Impressions: Radiology Procedures Category Date Time Status CHEST 1 VIEW (PORTABLE) Stat Exams 03/16/22 12:27 Completed - Other Procedures and Tests Respiratory Therapy 03/16/22 13:25 Respiratory Therapy Assessment ONCE 03/16/22 15:35 Oxygen NASAL CANNULA 5 lpm Assessment/Plan (1) Pneumonia Current Visit: Yes Status: Acute Assessment & Plan: rocephin and zithromax ordered, will continue with supplemental oxygen and nebulizer therapy Code(s): J18.9 - PNEUMONIA, UNSPECIFIED ORGANISM (2) Hypokalemia Current Visit: Yes Status: Acute Assessment & Plan: replacing, will check mag as well this am Code(s): E87.6 - HYPOKALEMIA (3) Generalized weakness Current Visit: Yes Status: Acute Code(s): R53.1 - WEAKNESS
[2022-03-17] MEDS: KEPPRA PO SCH ×2 (08:53→21:08)
[2022-03-17] MEDS: ELIQUIS 2.5 MG TABLET PO SCH ×2 (08:53→21:08)
[2022-03-17] MEDS: hydroDIURIL 25 MG PO SCH (08:56)
[2022-03-17] MEDS: Klor Con PO SCH ×2 (09:16→21:07)
[2022-03-17] MEDS: Tessalon Perles 100 MG PO PRN ×3 (09:44→22:04)
[2022-03-17] MEDS ORDERED: ROCEPHIN 2 Gm-D5w 50ML BAG** 2 G/50 ML IVPB IV SCH (10:00)
[2022-03-17] MEDS ORDERED: NON-FORMULARY ITEM (Primidone [Mysoline] 250 MG Tablet) PO SCH (10:00)
[2022-03-17] MEDS: ZOCOR 20MG PO SCH (21:07)
[2022-03-18] MEDS: DUONEB 0.5-3 MG/3 ml Neb IH SCH ×6 (03:14→23:08)
[2022-03-18 05:01] LABS: Absolute Neutrophil Ct (ANC) 4.37 x10^3/uL (1.4-6.9); Basophil (Absolute #) 0.06 x10^3/uL (0-0.4); Eosinophil % 8.5 % (0.00-5.0); Hematocrit 31.1 % (35-47); Lymphocyte (Absolute #) 1.19 x10^3/uL (1.0-4.6); Lymphocytes % 16.9 % (24.0-44.0); Mean Cell Volume 94.2 fL (78-100); Mean Corpuscular Hemoglobin 30.3 pg (26-32); Mean Corpuscular Hgb Concent. 32.2 g/dL (32-36); Mean Platelet Volume 11.1 fL (7.5-11.0); Monocyte (Absolute #) 0.82 x10^3/uL (0.0-1.3); Monocytes % 11.6 % (0.0-12.0); Neutrophil % 61.9 % (36.0-66.0); Platelet Count 204 x10^3/uL (150-450); Red Cell Distribution Width 13.7 % (11.5-14.0); White Blood Count 7.1 x10^3/uL (4.0-10.5)
[2022-03-18 05:39] LABS: ALBUMIN 3.2 g/dL (3.5-5.0); ALKALINE PHOSPHATASE 70 U/L (38-126); ANION GAP 10.3 MEQ/L (5-15); BLOOD UREA NITROGEN 16 mg/dL (7-17); CHLORIDE 96 mmol/L (98-107); Calcium 8.6 mg/dL (8.4-10.2); Carbon Dioxide 30 mmol/L (22-30); Creatinine 1 0.68 mg/dL (0.52-1.04); EST GLOMERULAR FILTRATION RATE > 60.0 ML/MIN; Glucose 116 mg/dL (74-106); Potassium 3.7 mmol/L (3.5-5.1); SGOT/AST 27 U/L (14-36); SGPT/ALT 13 U/L (0-35); SODIUM 132 mmol/L (137-145); Total Protein 6.7 g/dL (6.3-8.2)
[2022-03-18] MEDS: MYSOLINE 50MG PO SCH (07:52)
[2022-03-18] MEDS: KEPPRA PO SCH ×2 (07:53→21:11)
[2022-03-18] MEDS: hydroDIURIL 25 MG PO SCH (07:53)
[2022-03-18] MEDS: Imdur 30 MG PO SCH (07:53)
[2022-03-18] MEDS: lamICTAL 100MG TABLET PO SCH ×2 (07:53→21:11)
[2022-03-18] MEDS: Lopressor 50 MG PO SCH ×2 (07:53→21:11)
[2022-03-18] MEDS: ELIQUIS 2.5 MG TABLET PO SCH ×2 (07:53→21:11)
[2022-03-18] MEDS: Klor Con PO SCH ×2 (07:54→21:11)
[2022-03-18] MEDS: ROCEPHIN 1 Gm-D5w 50 ml Bag** 1 G/50 ML IVPB IV SCH (07:54)
--- NOTE | 2022-03-18 07:58 | PCM.NOTE ---
Date and Time: 03/18/22 075 Subjective Assessment: patient has cough but not productive, feels like she needs to get something up but can't. off oxygen, no fever Objective Exam General Appearance: no apparent distress, obese Neurologic Exam: alert Respiratory Exam: crackles/rales Cardiovascular Exam: regular rate/rhythm, normal heart sounds Gastrointestinal/Abdomen Exam: soft, No tenderness, No mass Extremity Exam: normal inspection, normal range of motion OBJECTIVE DATA Vital Signs: Vital Signs - 24 hr Temp Pulse Resp BP Pulse Ox 03/18/22 07:43 98.9 F 80 18 128/60 97 03/18/22 07:16 81 18 91 L 03/18/22 04:00 98.0 F 82 20 124/58 94 L 03/18/22 03:14 78 18 98 03/17/22 23:35 97.8 F 73 18 137/62 94 L 03/17/22 23:10 73 18 94 L 03/17/22 19:31 98.0 F 85 20 129/59 93 L 03/17/22 18:56 87 18 99 03/17/22 16:27 78 18 94 L 03/17/22 16:00 97.7 F 93 H 19 116/55 96 03/17/22 12:00 97.5 F 78 22 104/55 91 L 03/17/22 11:47 72 18 93 L 03/17/22 09:38 61 18 98 03/17/22 08:00 98.6 F 77 25 H 99/47 94 L Pain Assessment - Last Documented Pain Intensity 0 Intake and Output: Intake & Output 03/15/22 03/16/22 03/17/22 03/18/22 11:59 11:59 11:59 11:59 Intake Total 1561 780 Output Total 200 500 Balance 1361 280 Weight 97.522 kg 97.1 kg 99.1 kg Lab Results: Lab Results-Last 24 Hours 03/17/22 03/18/22 03/18/22 Range/Units 04:35 04:00 04:43 WBC 7.1 (4.0-10.5) x10^3/uL RBC 3.30 L (4.1-5.4) x10^6/uL Hgb 10.0 L (12.0-16.0) g/dL Hct 31.1 L (35-47) % MCV 94.2 (78-100) fL MCH 30.3 (26-32) pg MCHC 32.2 (32-36) g/dL RDW 13.7 (11.5-14.0) % Plt Count 204 (150-450) x10^3/uL MPV 11.1 H (7.5-11.0) fL Gran % 61.9 (36.0-66.0) % Immature Gran % (Auto) 0.3 (0.00-0.4) % Nucleat RBC Rel Count 0.0 (0.00-0.1) % Eos # (Auto) 0.60 H (0-0.5) x10^3/uL Immature Gran # (Auto) 0.02 (0.00-0.03) x10^3u/L Absolute Lymphs (auto) 1.19 (1.0-4.6) x10^3/uL Absolute Monos (auto) 0.82 (0.0-1.3) x10^3/uL Absolute Nucleated RBC 0.00 (0.00-0.01) x10^3u/L Lymphocytes % 16.9 L (24.0-44.0) % Monocytes % 11.6 (0.0-12.0) % Eosinophils % 8.5 H (0.00-5.0) % Basophils % 0.8 (0.0-0.4) % Absolute Granulocytes 4.37 (1.4-6.9) x10^3/uL Basophils # 0.06 (0-0.4) x10^3/uL Sodium 132 L (137-145) mmol/L Potassium 3.7 D (3.5-5.1) mmol/L Chloride 96 L (98-107) mmol/L Carbon Dioxide 30 (22-30) mmol/L Anion Gap 10.3 (5-15) MEQ/L BUN 16 (7-17) mg/dL Creatinine 0.68 (0.52-1.04) mg/dL Estimated GFR > 60.0 ML/MIN Glucose 116 H (74-106) mg/dL Calcium 8.6 (8.4-10.2) mg/dL Magnesium 2.4 H 2.0 (1.6-2.3) mg/dL Total Bilirubin 0.60 (0.2-1.3) mg/dL AST 27 (14-36) U/L ALT 13 (0-35) U/L Alkaline Phosphatase 70 (38-126) U/L Serum Total Protein 6.7 (6.3-8.2) g/dL Albumin 3.2 L (3.5-5.0) g/dL Radiology Exams: Radiology Procedures Category Date Time Status CHEST 1 VIEW (PORTABLE) Stat Exams 03/16/22 12:27 Completed Multi-Disciplinary Progress Notes: Multi-Disciplinary Progress Notes 03/17/22 12:15 Case Management Note by Donna Hook PATIENT HAS [facility]. THEY WERE NOTIFIED PATIENT IS HERE OBS. THEY WILL NEED NOTIFIED AT TIME OF DC AT [phone]. THEY WILL NEED FAXED THE DC INSTRUCTIONS, DC MED LIST AND DC SUMMARY ( IF AVAILABLE) TO [phone] Initialized on 03/17/22 12:15 - END OF NOTE Assessment/Plan (1) Pneumonia Current Visit: Yes Status: Acute Assessment & Plan: continue rocephin/zithromax, clinically consistent with volume overload. will give IV lasix and follow, check bnp Code(s): J18.9 - PNEUMONIA, UNSPECIFIED ORGANISM (2) Hypokalemia Current Visit: Yes Status: Acute Assessment & Plan: resolved Code(s): E87.6 - HYPOKALEMIA (3) Generalized weakness Current Visit: Yes Status: Acute Code(s): R53.1 - WEAKNESS
[2022-03-18] MEDS: Lasix 20 MG/2 ML IV SCH (08:49)
[2022-03-18] MEDS: Mucinex 600MG ER Tabs PO SCH ×2 (08:49→21:10)
[2022-03-18] MEDS: Zithromax 500 MG/ 250 ML NaCl Premix 500 MG/250 ML IVPB IV SCH (08:50)
[2022-03-18] MEDS: Tessalon Perles 100 MG PO PRN ×2 (15:36→21:10)
[2022-03-18] MEDS: ZOCOR 20MG PO SCH (21:10)
[2022-03-19] MEDS: DUONEB 0.5-3 MG/3 ml Neb IH SCH ×6 (03:00→22:35)
[2022-03-19 05:19] LABS: Absolute Neutrophil Ct (ANC) 3.34 x10^3/uL (1.4-6.9); Basophil (Absolute #) 0.05 x10^3/uL (0-0.4); Eosinophil % 9.2 % (0.00-5.0); Eosinophil (Absolute #) 0.54 x10^3/uL (0-0.5); Hematocrit 31.8 % (35-47); Lymphocyte (Absolute #) 1.36 x10^3/uL (1.0-4.6); Lymphocytes % 23.1 % (24.0-44.0); Mean Cell Volume 95.2 fL (78-100); Mean Corpuscular Hemoglobin 29.9 pg (26-32); Mean Corpuscular Hgb Concent. 31.4 g/dL (32-36); Mean Platelet Volume 11.3 fL (7.5-11.0); Monocyte (Absolute #) 0.59 x10^3/uL (0.0-1.3); Neutrophil % 56.7 % (36.0-66.0); Platelet Count 210 x10^3/uL (150-450); Red Blood Count 3.34 x10^6/uL (4.1-5.4); Red Cell Distribution Width 13.8 % (11.5-14.0); White Blood Count 5.9 x10^3/uL (4.0-10.5)
[2022-03-19 05:47] LABS: BLOOD UREA NITROGEN 14 mg/dL (7-17); CHLORIDE 93 mmol/L (98-107); Calcium 8.7 mg/dL (8.4-10.2); Carbon Dioxide 34 mmol/L (22-30); Creatinine 1 0.85 mg/dL (0.52-1.04); EST GLOMERULAR FILTRATION RATE > 60.0 ML/MIN; Glucose 107 mg/dL (74-106); Potassium 3.9 mmol/L (3.5-5.1); SODIUM 134 mmol/L (137-145)
--- NOTE | 2022-03-19 08:08 | PCM.NOTE ---
Date and Time: 03/19/22805 Subjective Assessment: diuresing yesterday, over 1200ml urine output. on room air, breathing is mildly improved Objective Exam General Appearance: no apparent distress, obese Neurologic Exam: alert, oriented x 3 Respiratory Exam: crackles/rales Cardiovascular Exam: regular rate/rhythm, normal heart sounds Gastrointestinal/Abdomen Exam: soft, No tenderness, No mass Extremity Exam: normal inspection, normal range of motion OBJECTIVE DATA Vital Signs: Vital Signs - 24 hr Temp Pulse Resp BP Pulse Ox 03/19/22 08:00 97.5 F 82 29 H 123/56 90 L 03/19/22 07:01 75 20 90 L 03/19/22 03:47 98.2 F 80 20 130/60 94 L 03/19/22 03:00 80 20 94 L 03/18/22 23:38 97.8 F 89 24 148/68 92 L 03/18/22 23:09 88 20 92 L 03/18/22 19:55 97.7 F 78 20 142/65 98 03/18/22 18:51 78 20 98 03/18/22 16:00 97.3 F 84 16 121/56 91 L 03/18/22 14:58 81 18 91 L 03/18/22 12:00 97.7 F 76 18 103/57 91 L 03/18/22 11:22 90 18 97 Pain Assessment - Last Documented Pain Intensity 0 Intake and Output: Intake & Output 03/16/22 03/17/22 03/18/22 03/19/22 11:59 11:59 11:59 11:59 Intake Total 1561 780 880 Output Total 200 500 Balance 1361 280 880 Weight 97.522 kg 97.1 kg 99.1 kg 98.5 kg Lab Results: Lab Results-Last 24 Hours 03/18/22 03/19/22 03/19/22 Range/Units 08:26 04:35 04:35 WBC 5.9 (4.0-10.5) x10^3/uL RBC 3.34 L (4.1-5.4) x10^6/uL Hgb 10.0 L (12.0-16.0) g/dL Hct 31.8 L (35-47) % MCV 95.2 (78-100) fL MCH 29.9 (26-32) pg MCHC 31.4 L (32-36) g/dL RDW 13.8 (11.5-14.0) % Plt Count 210 (150-450) x10^3/uL MPV 11.3 H (7.5-11.0) fL Gran % 56.7 (36.0-66.0) % Immature Gran % (Auto) 0.2 (0.00-0.4) % Nucleat RBC Rel Count 0.0 (0.00-0.1) % Eos # (Auto) 0.54 H (0-0.5) x10^3/uL Immature Gran # (Auto) 0.01 (0.00-0.03) x10^3u/L Absolute Lymphs (auto) 1.36 (1.0-4.6) x10^3/uL Absolute Monos (auto) 0.59 (0.0-1.3) x10^3/uL Absolute Nucleated RBC 0.00 (0.00-0.01) x10^3u/L Lymphocytes % 23.1 L (24.0-44.0) % Monocytes % 10.0 (0.0-12.0) % Eosinophils % 9.2 H (0.00-5.0) % Basophils % 0.8 (0.0-0.4) % Absolute Granulocytes 3.34 (1.4-6.9) x10^3/uL Basophils # 0.05 (0-0.4) x10^3/uL Sodium 134 L (137-145) mmol/L Potassium 3.9 (3.5-5.1) mmol/L Chloride 93 L (98-107) mmol/L Carbon Dioxide 34 H (22-30) mmol/L Anion Gap 11.0 (5-15) MEQ/L BUN 14 (7-17) mg/dL Creatinine 0.85 (0.52-1.04) mg/dL Estimated GFR > 60.0 ML/MIN Glucose 107 H (74-106) mg/dL Calcium 8.7 (8.4-10.2) mg/dL NT-Pro-B Natriuret Pep 2390 H (0-900) pg/mL Multi-Disciplinary Progress Notes: Multi-Disciplinary Progress Notes 03/18/22 08:40 Case Management Note by Donna Hook REVIEWED CHART-NO CHANGE IN DC PLANS AT THIS TIME Initialized on 03/18/22 08:40 - END OF NOTE Assessment/Plan (1) Pneumonia Current Visit: Yes Status: Acute Assessment & Plan: rocephin and zithromax Code(s): J18.9 - PNEUMONIA, UNSPECIFIED ORGANISM (2) CHF (congestive heart failure) Current Visit: Yes Status: Acute Assessment & Plan: continue IV lasix, Aug 2021 echo reviewed with mild decrease in systolic function Code(s): I50.9 - HEART FAILURE, UNSPECIFIED (3) Hypokalemia Current Visit: Yes Status: Acute Code(s): E87.6 - HYPOKALEMIA (4) Generalized weakness Current Visit: Yes Status: Acute Code(s): R53.1 - WEAKNESS
[2022-03-19] MEDS: lamICTAL 100MG TABLET PO SCH ×2 (09:15→23:11)
[2022-03-19] MEDS: Mucinex 600MG ER Tabs PO SCH ×2 (09:15→23:11)
[2022-03-19] MEDS: Klor Con PO SCH ×2 (09:15→23:12)
[2022-03-19] MEDS: hydroDIURIL 25 MG PO SCH (09:16)
[2022-03-19] MEDS: ELIQUIS 2.5 MG TABLET PO SCH ×2 (09:16→23:12)
[2022-03-19] MEDS: Imdur 30 MG PO SCH (09:16)
[2022-03-19] MEDS: KEPPRA PO SCH ×2 (09:17→23:12)
[2022-03-19] MEDS: Lasix 20 MG/2 ML IV SCH (09:17)
[2022-03-19] MEDS: Lopressor 50 MG PO SCH ×2 (09:17→23:12)
[2022-03-19] MEDS: ROCEPHIN 1 Gm-D5w 50 ml Bag** 1 G/50 ML IVPB IV SCH (09:20)
[2022-03-19] MEDS: Zithromax 500 MG/ 250 ML NaCl Premix 500 MG/250 ML IVPB IV SCH (09:51)
[2022-03-19] MEDS: MYSOLINE 50MG PO SCH (10:36)
[2022-03-19] MEDS: ZOCOR 20MG PO SCH (23:11)
[2022-03-19] MEDS: Tessalon Perles 100 MG PO PRN (23:12)
[2022-03-20] MEDS: DUONEB 0.5-3 MG/3 ml Neb IH SCH ×5 (02:40→19:32)
[2022-03-20 06:06] LABS: Absolute Neutrophil Ct (ANC) 4.04 x10^3/uL (1.4-6.9); Basophil (Absolute #) 0.09 x10^3/uL (0-0.4); Eosinophil % 9.7 % (0.00-5.0); Eosinophil (Absolute #) 0.68 x10^3/uL (0-0.5); Hematocrit 32.1 % (35-47); Lymphocyte (Absolute #) 1.61 x10^3/uL (1.0-4.6); Lymphocytes % 22.9 % (24.0-44.0); Mean Cell Volume 95.5 fL (78-100); Mean Corpuscular Hemoglobin 29.8 pg (26-32); Mean Corpuscular Hgb Concent. 31.2 g/dL (32-36); Mean Platelet Volume 11.1 fL (7.5-11.0); Monocyte (Absolute #) 0.59 x10^3/uL (0.0-1.3); Monocytes % 8.4 % (0.0-12.0); Neutrophil % 57.4 % (36.0-66.0); Platelet Count 218 x10^3/uL (150-450); Red Blood Count 3.36 x10^6/uL (4.1-5.4); Red Cell Distribution Width 13.4 % (11.5-14.0)
[2022-03-20 06:39] LABS: ANION GAP 11.5 MEQ/L (5-15); BLOOD UREA NITROGEN 19 mg/dL (7-17); CHLORIDE 92 mmol/L (98-107); Calcium 8.9 mg/dL (8.4-10.2); Carbon Dioxide 34 mmol/L (22-30); Creatinine 1 0.85 mg/dL (0.52-1.04); EST GLOMERULAR FILTRATION RATE > 60.0 ML/MIN; Glucose 94 mg/dL (74-106); NT PRO BNP 2340 pg/mL (0-900); Potassium 4.4 mmol/L (3.5-5.1); SODIUM 133 mmol/L (137-145)
[2022-03-20] MEDS: Mucinex 600MG ER Tabs PO SCH ×2 (09:02→22:08)
[2022-03-20] MEDS: MYSOLINE 50MG PO SCH (09:03)
[2022-03-20] MEDS: hydroDIURIL 25 MG PO SCH (09:04)
[2022-03-20] MEDS: ELIQUIS 2.5 MG TABLET PO SCH ×2 (09:04→22:07)
[2022-03-20] MEDS: Lopressor 50 MG PO SCH ×2 (09:05→22:07)
[2022-03-20] MEDS: lamICTAL 100MG TABLET PO SCH ×2 (09:05→22:07)
[2022-03-20] MEDS: Imdur 30 MG PO SCH (09:05)
[2022-03-20] MEDS: KEPPRA PO SCH ×2 (09:06→22:07)
[2022-03-20] MEDS: Klor Con PO SCH ×2 (09:06→22:07)
[2022-03-20] MEDS: Tessalon Perles 100 MG PO PRN ×2 (09:09→22:08)
[2022-03-20] MEDS: Lasix 20 MG/2 ML IV SCH (09:10)
[2022-03-20] MEDS: ROCEPHIN 1 Gm-D5w 50 ml Bag** 1 G/50 ML IVPB IV SCH (09:12)
[2022-03-20] MEDS: Zithromax 500 MG/ 250 ML NaCl Premix 500 MG/250 ML IVPB IV SCH (09:44)
--- NOTE | 2022-03-20 13:09 | PCM.NOTE ---
Date and Time: 03/20/22 1306 Subjective Assessment: Patient is up in chair ,looks pale ,no dyspnea at rest ,O2 sats drop to 88 with ambulation. Patient diuresed yesterday but BNP still 2000+. Decreased aeration on exam today. Objective Exam General Appearance: no apparent distress Neurologic Exam: alert (mild mentally delayed does not know any details) Skin Exam: warm, dry, pale Ears, Nose, Throat Exam: normal ENT inspection Neck Exam: normal inspection Respiratory Exam: diminished breath sounds, wheezing (high pitched eew right upper/mid,no rales or ronchi) Cardiovascular Exam: regular rate/rhythm Gastrointestinal/Abdomen Exam: soft (nontender) Extremity Exam: pedal edema Back Exam: normal inspection OBJECTIVE DATA Vital Signs: Vital Signs - 24 hr Temp Pulse Resp BP Pulse Ox 03/20/22 11:20 60 18 94 L 03/20/22 11:05 97.7 F 60 22 121/56 92 L 03/20/22 07:26 97.5 F 65 24 134/63 91 L 03/20/22 07:17 63 20 93 L 03/20/22 03:57 97.7 F 79 18 121/60 92 L 03/20/22 02:30 78 16 91 L 03/19/22 23:52 97.5 F 81 18 124/58 91 L 03/19/22 22:35 74 20 94 L 03/19/22 20:00 97.5 F 72 18 122/58 94 L 03/19/22 19:09 72 20 91 L 03/19/22 16:00 97.5 F 70 23 133/62 93 L 03/19/22 15:42 64 20 91 L Pain Assessment - Last Documented Pain Intensity 0 Intake and Output: Intake & Output 03/18/22 03/19/22 03/20/22 03/21/22 11:59 11:59 11:59 11:59 Intake Total 498 668 7103 Output Total 500 1475 Balance 280 880 -375 Weight 99.1 kg 98.5 kg 98.4 kg Lab Results: Lab Results-Last 24 Hours 03/20/22 03/20/22 Range/Units 06:08 06:08 WBC 7.0 (4.0-10.5) x10^3/uL RBC 3.36 L (4.1-5.4) x10^6/uL Hgb 10.0 L (12.0-16.0) g/dL Hct 32.1 L (35-47) % MCV 95.5 (78-100) fL MCH 29.8 (26-32) pg MCHC 31.2 L (32-36) g/dL RDW 13.4 (11.5-14.0) % Plt Count 218 (150-450) x10^3/uL MPV 11.1 H (7.5-11.0) fL Gran % 57.4 (36.0-66.0) % Immature Gran % (Auto) 0.3 (0.00-0.4) % Nucleat RBC Rel Count 0.0 (0.00-0.1) % Eos # (Auto) 0.68 H (0-0.5) x10^3/uL Immature Gran # (Auto) 0.02 (0.00-0.03) x10^3u/L Absolute Lymphs (auto) 1.61 (1.0-4.6) x10^3/uL Absolute Monos (auto) 0.59 (0.0-1.3) x10^3/uL Absolute Nucleated RBC 0.00 (0.00-0.01) x10^3u/L Lymphocytes % 22.9 L (24.0-44.0) % Monocytes % 8.4 (0.0-12.0) % Eosinophils % 9.7 H (0.00-5.0) % Basophils % 1.3 (0.0-0.4) % Absolute Granulocytes 4.04 (1.4-6.9) x10^3/uL Basophils # 0.09 (0-0.4) x10^3/uL Sodium 133 L (137-145) mmol/L Potassium 4.4 (3.5-5.1) mmol/L Chloride 92 L (98-107) mmol/L Carbon Dioxide 34 H (22-30) mmol/L Anion Gap 11.5 (5-15) MEQ/L BUN 19 H (7-17) mg/dL Creatinine 0.85 (0.52-1.04) mg/dL Estimated GFR > 60.0 ML/MIN Glucose 94 (74-106) mg/dL Calcium 8.9 (8.4-10.2) mg/dL NT-Pro-B Natriuret Pep 2340 H (0-900) pg/mL Assessment/Plan (1) CHF (congestive heart failure) Current Visit: Yes Status: Acute Assessment & Plan: continue tx, CXR 2 view Code(s): I50.9 - HEART FAILURE, UNSPECIFIED (2) Positive blood culture Current Visit: Yes Status: Acute Assessment & Plan: Gram stain "gram variable rods"clinically no signs of sepsis,urine cult neg. Afebrile ,WBC not elevated. Is on Zithromax and Rocephin-discussed with Pharmacist .Is allergic to PCN. Watchful waiting at this point. Code(s): R78.81 - BACTEREMIA (3) Hypoxia Current Visit: Yes Status: Acute Assessment & Plan: with exertion-dropped 88%with ambulation.At rest low 90s, RT eval start O2 Code(s): R09.02 - HYPOXEMIA
[2022-03-20] MEDS ORDERED: Lasix 20 MG/2 ML IV ONE (15:00)
[2022-03-20] MEDS ORDERED: DUONEB 0.5-3 MG/3 ml Neb IH PRN (20:56)
--- NOTE | 2022-03-20 21:09 | XRAY ---
Indication: Follow-up pneumonia. CHF. Comparison: March 16, 2022 PA/lateral chest better inflated and now clear. Heart not enlarged again with CABG. No new/acute findings. Impression: Nonacute chest. Comment: Preliminary interpretation made by [facility]. No critical discrepancy.
[2022-03-20] MEDS: ZOCOR 20MG PO SCH (22:08)
[2022-03-21] MEDS: DUONEB 0.5-3 MG/3 ml Neb IH SCH ×4 (06:56→18:54)
[2022-03-21] MEDS: ELIQUIS 2.5 MG TABLET PO SCH ×2 (09:51→21:25)
[2022-03-21] MEDS: hydroDIURIL 25 MG PO SCH (09:51)
[2022-03-21] MEDS: Klor Con PO SCH ×2 (09:53→21:25)
[2022-03-21] MEDS: Mucinex 600MG ER Tabs PO SCH ×2 (09:53→21:25)
[2022-03-21] MEDS: MYSOLINE 50MG PO SCH (09:53)
[2022-03-21] MEDS: Lopressor 50 MG PO SCH ×2 (09:53→21:25)
[2022-03-21] MEDS: Lasix 20 MG/2 ML IV SCH (09:53)
[2022-03-21] MEDS: KEPPRA PO SCH ×2 (09:53→21:25)
[2022-03-21] MEDS: Imdur 30 MG PO SCH (09:53)
[2022-03-21] MEDS: lamICTAL 100MG TABLET PO SCH ×2 (09:53→21:24)
[2022-03-21] MEDS: Tessalon Perles 100 MG PO PRN ×2 (09:54→21:32)
[2022-03-21] MEDS: ROCEPHIN 1 Gm-D5w 50 ml Bag** 1 G/50 ML IVPB IV SCH (10:00)
[2022-03-21] MEDS: Zithromax 500 MG/ 250 ML NaCl Premix 500 MG/250 ML IVPB IV SCH (10:01)
[2022-03-21] MEDS ORDERED: Lasix 20 MG/2 ML IV ONE (11:20)
[2022-03-21 12:42] LABS: Absolute Neutrophil Ct (ANC) 5.66 x10^3/uL (1.4-6.9); Eosinophil % 8.2 % (0.00-5.0); Eosinophil (Absolute #) 0.72 x10^3/uL (0-0.5); Hematocrit 37.5 % (35-47); Hemoglobin 11.9 g/dL (12.0-16.0); Lymphocyte (Absolute #) 1.74 x10^3/uL (1.0-4.6); Lymphocytes % 19.8 % (24.0-44.0); Mean Cell Volume 95.2 fL (78-100); Mean Corpuscular Hemoglobin 30.2 pg (26-32); Mean Corpuscular Hgb Concent. 31.7 g/dL (32-36); Mean Platelet Volume 10.8 fL (7.5-11.0); Monocyte (Absolute #) 0.53 x10^3/uL (0.0-1.3); Neutrophil % 64.4 % (36.0-66.0); Platelet Count 300 x10^3/uL (150-450); Red Blood Count 3.94 x10^6/uL (4.1-5.4); Red Cell Distribution Width 13.3 % (11.5-14.0); White Blood Count 8.8 x10^3/uL (4.0-10.5)
[2022-03-21 12:51] LABS: ALBUMIN 4.4 g/dL (3.5-5.0); ALKALINE PHOSPHATASE 82 U/L (38-126); ANION GAP 13.4 MEQ/L (5-15); BLOOD UREA NITROGEN 22 mg/dL (7-17); CHLORIDE 90 mmol/L (98-107); Calcium 9.9 mg/dL (8.4-10.2); Carbon Dioxide 36 mmol/L (22-30); Creatinine 1 0.88 mg/dL (0.52-1.04); EST GLOMERULAR FILTRATION RATE > 60.0 ML/MIN; Glucose 98 mg/dL (74-106); Potassium 3.9 mmol/L (3.5-5.1); SGOT/AST 34 U/L (14-36); SGPT/ALT 17 U/L (0-35); SODIUM 136 mmol/L (137-145); Total Protein 9.2 g/dL (6.3-8.2)
[2022-03-21] MEDS: ZOCOR 20MG PO SCH (21:24)
--- NOTE | 2022-03-22 02:14 | PCM.NOTE ---
Date and Time: 03/21/22 1300 Subjective Assessment: C/o coughing more. RT collected sputum and started flutter. BNP continues 1999+,Lasix IV 40mg given past 2 days with diuresis and wieght loss. Last ECHO was AUG 2021 - ejection fraction=40-45%,moderate pulmonary HTN,moderate aortic regurg. Elevated eosiniphils- started Loratadine. Ptn more alert and communicative today. Is eating lunch. no conversational dyspnea. Objective Exam General Appearance: no apparent distress Neurologic Exam: alert, oriented x 3 Skin Exam: normal color, warm, dry Ears, Nose, Throat Exam: normal ENT inspection Neck Exam: normal inspection Respiratory Exam: diminished breath sounds, crackles/rales Cardiovascular Exam: regular rate/rhythm, murmur Extremity Exam: pelvis stable, other (no pitting edema) OBJECTIVE DATA Vital Signs: Vital Signs - 24 hr Temp Pulse Resp BP Pulse Ox 03/21/22 23:56 97.5 F 65 18 132/61 93 L 03/21/22 19:44 97.5 F 72 22 119/57 94 L 03/21/22 18:54 72 22 94 L 03/21/22 16:00 97.5 F 68 18 119/57 96 03/21/22 14:12 60 18 92 L 03/21/22 11:44 97.1 F 61 20 126/59 93 L 03/21/22 10:51 58 L 18 92 L 03/21/22 07:23 97.5 F 57 L 24 127/56 91 L 03/21/22 06:58 63 16 92 L 03/21/22 03:49 18 Pain Assessment - Last Documented Pain Intensity 0 Intake and Output: Intake & Output 03/19/22 03/20/22 03/21/22 03/22/22 11:59 11:59 11:59 11:59 Intake Total 880 5795 905 0691 Output Total 1475 1800 1900 Balance 880 -375 -960 -880 Weight 98.5 kg 98.4 kg 97 kg Lab Results: Lab Results-Last 24 Hours 03/21/22 03/21/22 03/21/22 Range/Units 12:40 12:40 12:40 WBC 8.8 (4.0-10.5) x10^3/uL RBC 3.94 L (4.1-5.4) x10^6/uL Hgb 11.9 L (12.0-16.0) g/dL Hct 37.5 (35-47) % MCV 95.2 (78-100) fL MCH 30.2 (26-32) pg MCHC 31.7 L (32-36) g/dL RDW 13.3 (11.5-14.0) % Plt Count 300 D (150-450) x10^3/uL MPV 10.8 (7.5-11.0) fL Gran % 64.4 (36.0-66.0) % Immature Gran % (Auto) 0.5 H (0.00-0.4) % Nucleat RBC Rel Count 0.0 (0.00-0.1) % Eos # (Auto) 0.72 H (0-0.5) x10^3/uL Immature Gran # (Auto) 0.04 H (0.00-0.03) x10^3u/L Absolute Lymphs (auto) 1.74 (1.0-4.6) x10^3/uL Absolute Monos (auto) 0.53 (0.0-1.3) x10^3/uL Absolute Nucleated RBC 0.00 (0.00-0.01) x10^3u/L Lymphocytes % 19.8 L (24.0-44.0) % Monocytes % 6.0 (0.0-12.0) % Eosinophils % 8.2 H (0.00-5.0) % Basophils % 1.1 (0.0-0.4) % Absolute Granulocytes 5.66 (1.4-6.9) x10^3/uL Basophils # 0.10 (0-0.4) x10^3/uL Sodium 136 L (137-145) mmol/L Potassium 3.9 (3.5-5.1) mmol/L Chloride 90 L (98-107) mmol/L Carbon Dioxide 36 H (22-30) mmol/L Anion Gap 13.4 (5-15) MEQ/L BUN 22 H (7-17) mg/dL Creatinine 0.88 (0.52-1.04) mg/dL Estimated GFR > 60.0 ML/MIN Glucose 98 (74-106) mg/dL Calcium 9.9 (8.4-10.2) mg/dL Total Bilirubin 0.50 (0.2-1.3) mg/dL AST 34 (14-36) U/L ALT 17 (0-35) U/L Alkaline Phosphatase 82 (38-126) U/L NT-Pro-B Natriuret Pep (0-900) pg/mL Serum Total Protein 9.2 H (6.3-8.2) g/dL Albumin 4.4 (3.5-5.0) g/dL Procalcitonin 0.069 (0.030-0.080) ng/mL 03/21/22 Range/Units 12:40 WBC (4.0-10.5) x10^3/uL RBC (4.1-5.4) x10^6/uL Hgb (12.0-16.0) g/dL Hct (35-47) % MCV (78-100) fL MCH (26-32) pg MCHC (32-36) g/dL RDW (11.5-14.0) % Plt Count (150-450) x10^3/uL MPV (7.5-11.0) fL Gran % (36.0-66.0) % Immature Gran % (Auto) (0.00-0.4) % Nucleat RBC Rel Count (0.00-0.1) % Eos # (Auto) (0-0.5) x10^3/uL Immature Gran # (Auto) (0.00-0.03) x10^3u/L Absolute Lymphs (auto) (1.0-4.6) x10^3/uL Absolute Monos (auto) (0.0-1.3) x10^3/uL Absolute Nucleated RBC (0.00-0.01) x10^3u/L Lymphocytes % (24.0-44.0) % Monocytes % (0.0-12.0) % Eosinophils % (0.00-5.0) % Basophils % (0.0-0.4) % Absolute Granulocytes (1.4-6.9) x10^3/uL Basophils # (0-0.4) x10^3/uL Sodium (137-145) mmol/L Potassium (3.5-5.1) mmol/L Chloride (98-107) mmol/L Carbon Dioxide (22-30) mmol/L Anion Gap (5-15) MEQ/L BUN (7-17) mg/dL Creatinine (0.52-1.04) mg/dL Estimated GFR ML/MIN Glucose (74-106) mg/dL Calcium (8.4-10.2) mg/dL Total Bilirubin (0.2-1.3) mg/dL AST (14-36) U/L ALT (0-35) U/L Alkaline Phosphatase (38-126) U/L NT-Pro-B Natriuret Pep 2380 H (0-900) pg/mL Serum Total Protein (6.3-8.2) g/dL Albumin (3.5-5.0) g/dL Procalcitonin (0.030-0.080) ng/mL Radiology Exams: Radiology Procedures Category Date Time Status CHEST 2 VIEWS (PA AND LAT) Routine Exams 03/20/22 13:31 Completed Assessment/Plan (1) CHF (congestive heart failure) Current Visit: Yes Status: Acute Assessment & Plan: ECHO Tuesday Code(s): I50.9 - HEART FAILURE, UNSPECIFIED (2) Positive blood culture Current Visit: Yes Status: Acute Assessment & Plan: Is afebrile,no elevation of WBC, is on Rocephin and Zithromax ,Zithromax stopped ,has had 5 doses Code(s): R78.81 - BACTEREMIA (3) Hypoxia Current Visit: Yes Status: Acute Code(s): R09.02 - HYPOXEMIA (4) Pulmonary HTN Current Visit: Yes Status: Chronic Assessment & Plan: see AUG 2021 ECHO Code(s): I27.20 - PULMONARY HYPERTENSION, UNSPECIFIED (5) Heart murmur Current Visit: Yes Status: Acute Code(s): R01.1 - CARDIAC MURMUR, UNSPECIFIED
[2022-03-22 06:21] LABS: Absolute Neutrophil Ct (ANC) 6.07 x10^3/uL (1.4-6.9); Basophil (Absolute #) 0.11 x10^3/uL (0-0.4); Eosinophil % 6.5 % (0.00-5.0); Eosinophil (Absolute #) 0.62 x10^3/uL (0-0.5); Hematocrit 35.1 % (35-47); Hemoglobin 11.3 g/dL (12.0-16.0); Lymphocyte (Absolute #) 2.01 x10^3/uL (1.0-4.6); Lymphocytes % 21.1 % (24.0-44.0); Mean Cell Volume 93.6 fL (78-100); Mean Corpuscular Hemoglobin 30.1 pg (26-32); Mean Corpuscular Hgb Concent. 32.2 g/dL (32-36); Mean Platelet Volume 10.8 fL (7.5-11.0); Monocyte (Absolute #) 0.65 x10^3/uL (0.0-1.3); Monocytes % 6.8 % (0.0-12.0); Neutrophil % 63.9 % (36.0-66.0); Platelet Count 280 x10^3/uL (150-450); Red Blood Count 3.75 x10^6/uL (4.1-5.4); Red Cell Distribution Width 13.3 % (11.5-14.0); White Blood Count 9.5 x10^3/uL (4.0-10.5)
[2022-03-22 06:57] LABS: ALKALINE PHOSPHATASE 84 U/L (38-126); ANION GAP 10.5 MEQ/L (5-15); BLOOD UREA NITROGEN 19 mg/dL (7-17); CHLORIDE 90 mmol/L (98-107); Calcium 9.2 mg/dL (8.4-10.2); Carbon Dioxide 36 mmol/L (22-30); Creatinine 1 0.91 mg/dL (0.52-1.04); EST GLOMERULAR FILTRATION RATE > 60.0 ML/MIN; Glucose 97 mg/dL (74-106); NT PRO BNP 1450 pg/mL (0-900); PROCALCITONIN 0.067 ng/mL (0.030-0.080); Potassium 3.9 mmol/L (3.5-5.1); SGOT/AST 32 U/L (14-36); SGPT/ALT 17 U/L (0-35); SODIUM 133 mmol/L (137-145); Total Protein 8.2 g/dL (6.3-8.2)
[2022-03-22] MEDS: DUONEB 0.5-3 MG/3 ml Neb IH SCH (07:17)
[2022-03-22 07:21] VITALS: O2SAT 91
[2022-03-22] MEDS: Mucinex 600MG ER Tabs PO SCH (08:12)
[2022-03-22] MEDS: Tessalon Perles 100 MG PO PRN (08:13)
[2022-03-22] MEDS: Lasix 20 MG/2 ML IV SCH (08:13)
[2022-03-22] MEDS: Klor Con PO SCH (08:13)
[2022-03-22] MEDS: ELIQUIS 2.5 MG TABLET PO SCH (08:13)
[2022-03-22] MEDS: Imdur 30 MG PO SCH (08:13)
[2022-03-22] MEDS: CLARITIN 10 MG PO SCH ×2 (08:13→09:26)
[2022-03-22] MEDS: KEPPRA PO SCH (08:13)
--- NOTE | 2022-03-22 08:42 | PCM.DS ---
Discharge Summary Date of Admission: 03/17/22 08:49 Admitting Physician: KEESHA PERERA Primary Care Provider: LACHO HARPER MARY Allergies Allergies Penicillins Allergy (Verified 03/16/22 11:35) unsure of reaction phenobarbital Allergy (Verified 03/16/22 11:35) phenytoin sodium [From Dilantin] Allergy (Verified 03/16/22 11:35) unsure of reaction phenytoin sodium extended [From Dilantin] Allergy (Verified 03/16/22 11:35) Hospital Summary - Hospital Course Hospital Course: patient was admitted with pneumonia, required oxygen initially. now on room air, has been treated with rocephin and zithromax. also had marked elevation of bnp, diuresed well. she is afebrile and on room air and quite stable at discharge. tolerating regular diet - Vitals & Intake/Output Vital Signs: Vital Signs Temperature 97.3 F 03/22/22 04:00 Pulse Rate 70 03/22/22 07:19 Respiratory Rate 18 03/22/22 07:19 Blood Pressure 99/46 03/22/22 04:00 O2 Sat by Pulse Oximetry 91 L 03/22/22 07:19 Intake & Output: Intake & Output 03/19/22 03/20/22 03/21/22 03/22/22 11:59 11:59 11:59 11:59 Intake Total 880 7502 639 6520 Output Total 1475 1800 2200 Balance 880 -375 -960 -800 Weight 98.5 kg 98.4 kg 97 kg - Lab Result Diagrams: 03/22/22 06:21 03/22/22 06:21 Lab Results-Last 24 Hrs: Lab Results-Last 24 Hours 03/21/22 03/21/22 03/21/22 Range/Units 12:40 12:40 12:40 WBC 8.8 (4.0-10.5) x10^3/uL RBC 3.94 L (4.1-5.4) x10^6/uL Hgb 11.9 L (12.0-16.0) g/dL Hct 37.5 (35-47) % MCV 95.2 (78-100) fL MCH 30.2 (26-32) pg MCHC 31.7 L (32-36) g/dL RDW 13.3 (11.5-14.0) % Plt Count 300 D (150-450) x10^3/uL MPV 10.8 (7.5-11.0) fL Gran % 64.4 (36.0-66.0) % Immature Gran % (Auto) 0.5 H (0.00-0.4) % Nucleat RBC Rel Count 0.0 (0.00-0.1) % Eos # (Auto) 0.72 H (0-0.5) x10^3/uL Immature Gran # (Auto) 0.04 H (0.00-0.03) x10^3u/L Absolute Lymphs (auto) 1.74 (1.0-4.6) x10^3/uL Absolute Monos (auto) 0.53 (0.0-1.3) x10^3/uL Absolute Nucleated RBC 0.00 (0.00-0.01) x10^3u/L Lymphocytes % 19.8 L (24.0-44.0) % Monocytes % 6.0 (0.0-12.0) % Eosinophils % 8.2 H (0.00-5.0) % Basophils % 1.1 (0.0-0.4) % Absolute Granulocytes 5.66 (1.4-6.9) x10^3/uL Basophils # 0.10 (0-0.4) x10^3/uL Sodium 136 L (137-145) mmol/L Potassium 3.9 (3.5-5.1) mmol/L Chloride 90 L (98-107) mmol/L Carbon Dioxide 36 H (22-30) mmol/L Anion Gap 13.4 (5-15) MEQ/L BUN 22 H (7-17) mg/dL Creatinine 0.88 (0.52-1.04) mg/dL Estimated GFR > 60.0 ML/MIN Glucose 98 (74-106) mg/dL Calcium 9.9 (8.4-10.2) mg/dL Total Bilirubin 0.50 (0.2-1.3) mg/dL AST 34 (14-36) U/L ALT 17 (0-35) U/L Alkaline Phosphatase 82 (38-126) U/L NT-Pro-B Natriuret Pep (0-900) pg/mL Serum Total Protein 9.2 H (6.3-8.2) g/dL Albumin 4.4 (3.5-5.0) g/dL Procalcitonin 0.069 (0.030-0.080) ng/mL 03/21/22 03/22/22 03/22/22 Range/Units 12:40 06:21 06:21 WBC 9.5 (4.0-10.5) x10^3/uL RBC 3.75 L (4.1-5.4) x10^6/uL Hgb 11.3 L (12.0-16.0) g/dL Hct 35.1 (35-47) % MCV 93.6 (78-100) fL MCH 30.1 (26-32) pg MCHC 32.2 (32-36) g/dL RDW 13.3 (11.5-14.0) % Plt Count 280 (150-450) x10^3/uL MPV 10.8 (7.5-11.0) fL Gran % 63.9 (36.0-66.0) % Immature Gran % (Auto) 0.5 H (0.00-0.4) % Nucleat RBC Rel Count 0.0 (0.00-0.1) % Eos # (Auto) 0.62 H (0-0.5) x10^3/uL Immature Gran # (Auto) 0.05 H (0.00-0.03) x10^3u/L Absolute Lymphs (auto) 2.01 (1.0-4.6) x10^3/uL Absolute Monos (auto) 0.65 (0.0-1.3) x10^3/uL Absolute Nucleated RBC 0.00 (0.00-0.01) x10^3u/L Lymphocytes % 21.1 L (24.0-44.0) % Monocytes % 6.8 (0.0-12.0) % Eosinophils % 6.5 H (0.00-5.0) % Basophils % 1.2 (0.0-0.4) % Absolute Granulocytes 6.07 (1.4-6.9) x10^3/uL Basophils # 0.11 (0-0.4) x10^3/uL Sodium 133 L (137-145) mmol/L Potassium 3.9 (3.5-5.1) mmol/L Chloride 90 L (98-107) mmol/L Carbon Dioxide 36 H (22-30) mmol/L Anion Gap 10.5 (5-15) MEQ/L BUN 19 H (7-17) mg/dL Creatinine 0.91 (0.52-1.04) mg/dL Estimated GFR > 60.0 ML/MIN Glucose 97 (74-106) mg/dL Calcium 9.2 (8.4-10.2) mg/dL Total Bilirubin 0.50 (0.2-1.3) mg/dL AST 32 (14-36) U/L ALT 17 (0-35) U/L Alkaline Phosphatase 84 (38-126) U/L NT-Pro-B Natriuret Pep 2380 H 1450 H (0-900) pg/mL Serum Total Protein 8.2 (6.3-8.2) g/dL Albumin 4.0 (3.5-5.0) g/dL Procalcitonin 0.067 (0.030-0.080) ng/mL Micro Results-Entire Visit: Microbiology 03/16/22 12:15 Blood Culture Gram Stain - Final Blood Not Reportable Blood Culture - Final NO GROWTH 03/16/22 12:11 Aerobic Organism ID Result 1 - Final Blood Not Reportable Aerobic Organism ID Result 2 - Final Not Reportable Aerobic Organism ID Result 3 - Final Not Reportable Aerobic Organism ID Result 4 - Final Not Reportable Aerobic Bacterial Sensitivity - Final Not Reportable 03/16/22 12:11 Blood Culture Gram Stain - Final Blood Blood Culture - Preliminary ADDITIONAL TESTING IS REQUIRED TO OBTAIN ID AND SENSITIVITY. SPECIMEN HAS BEEN SENT TO REFERENCE LAB, WITH FINAL RESULT EXPECTED WITHIN 96 HOURS. 03/16/22 14:30 Urine Culture - Final Clean Catch Midstream NO GROWTH - Radiology Exams Ordered Rad Exams-Entire Visit: Radiology Procedures Category Date Time Status CHEST 2 VIEWS (PA AND LAT) Routine Exams 03/20/22 13:31 Completed ECHO W/2D AND DOPPLER [US] Routine Exams 03/22/22 10:00 Ordered - Procedures and Test Procedures and Tests throughout Hospitalization: Therapy Orders & Screens 03/16/22 13:25 Respiratory Therapy Assessment ONCE Comment: 03/16/22 15:35 Oxygen NASAL CANNULA 5 lpm Comment: Diagnosis: hypoxia, Pneumonia 03/16/22 15:52 RT Screen per Nursing Assess ONCE Comment: Protocol Order Physician Instructions: Greater than 3 points order RT Admission Screen Reason For Exam: Triggered on Admission Diagnosis: hypoxia, Pneumonia Diagnosis: hypoxia, Pneumonia Pneumonia: Yes Home O2: No Asthma: No CHF: Yes Home CPAP/BIPAP: No Home Nebs/MDI: No Total Points: 6 03/21/22 11:00 Flutter Therapy QID Comment: Diagnosis: PNEUMONIA, HYPOXIA Discharge Exam General Appearance: no apparent distress, obese Neurologic Exam: alert, oriented x 3 Respiratory Exam: lungs clear, rhonchi (scattered rhonchi in bases, mostly clear. no distress), No respiratory distress, No accessory muscle use, No prolonged expirations Cardiovascular Exam: regular rate/rhythm, normal heart sounds Extremity Exam: normal inspection, normal range of motion Final Diagnosis/Problem List - Final Discharge Diagnosis/Problem (1) Pneumonia Current Visit: Yes Status: Acute Assessment & Plan: home on cefdinir x 7 days, hx pcn allergy but tolerated rocephin during hospital stay. has received a full course of zithromax Code(s): J18.9 - PNEUMONIA, UNSPECIFIED ORGANISM (2) CHF (congestive heart failure) Current Visit: Yes Status: Acute Assessment & Plan: home on po lasix 20mg daily, f/u in a week. Code(s): I50.9 - HEART FAILURE, UNSPECIFIED (3) Hypokalemia Current Visit: Yes Status: Acute Code(s): E87.6 - HYPOKALEMIA (4) Generalized weakness Current Visit: Yes Status: Acute Code(s): R53.1 - WEAKNESS - Discharge Disposition: Home, Self-Care Condition: Stable Prescriptions: New Cefdinir 300 mg PO BID #14 cap Furosemide 20 mg [Lasix 20 mg] 20 mg PO DAILY #30 tablet Potassium Chloride 10 meq PO DAILY #30 tablet Continue Primidone [Mysoline] 375 mg PO DAILY Pravastatin Sodium 40 mg PO HS Isosorbide Mononitrate [Isosorbide Mononitrate ER] 30 mg PO DAILY lamoTRIgine [Lamictal] 300 mg PO BID Metoprolol Tartrate [Lopressor] 50 mg PO BID Levetiracetam [Keppra] 500 mg PO BID Apixaban [Eliquis 5 mg Tablet] 5 mg PO BID Hydrochlorothiazide 25 mg [hydroDIURIL 25 MG] 12.5 mg PO DAILY dilTIAZem HCL [Diltiazem HCl] 30 mg PO QID Follow up with: LACHO HARPER MD [Primary Care Provider] - 03/31/22 10:45 am
[2022-03-22 08:48] VITALS: BP 123/58; PULSE 65
[2022-03-22] MEDS: MYSOLINE 50MG PO SCH (09:29)
[2022-03-22] MEDS: hydroDIURIL 25 MG PO SCH (09:31)
[2022-03-22] MEDS: lamICTAL 100MG TABLET PO SCH (09:32)
[2022-03-22] MEDS: Lopressor 50 MG PO SCH (09:32)
[2022-03-22] MEDS: ROCEPHIN 1 Gm-D5w 50 ml Bag** 1 G/50 ML IVPB IV SCH (09:33)
--- NOTE | 2022-03-23 08:16 | ECHO ---
Transthoracic echocardiographic examination and color Doppler was done on 03/22/2022. INDICATION: Cardiac murmur. IMPRESSION: 1) NO DEFINITE REGIONAL WALL MOTION ABNORMALITY. ESTIMATED GLOBAL LEFT VENTRICULAR EJECTION FRACTION OF AROUND 50 TO 55%. 2) CALCIFIC AORTIC STENOSIS. 3) THE LEFT VENTRICULAR OUTFLOW TRACT PEAK GRADIENT OF 80 MM OF MERCURY AND MEAN GRADIENT OF 46 MM OF MERCURY. 4) MODERATE AORTIC REGURGITATION. 5) MILD MITRAL REGURGITATION. 6) MILD TRICUSPID REGURGITATION. RIGHT VENTRICULAR SYSTOLIC PRESSURE OF 30 MM OF MERCURY. 7) MILD PULMONIC INSUFFICIENCY. 8) LEFT VENTRICULAR HYPERTROPHY. 9) LEFT ATRIAL ENLARGEMENT. 10) LEFT VENTRICLE DIASTOLIC DYSFUNCTION. The left ventricle is visualized and demonstrated adequate motion of all the segments. Estimated global left ventricular ejection fraction between 50 and 55%. There is mild left ventricular hypertrophy. The mitral valve is seen and this opens adequately. There is mild mitral regurgitation. Left atrium is enlarged. The aortic valve is calcified with limited opening. There is also some element of subaortic stenosis with systolic anterior motion of the mitral leaflet. The peak gradient across the left ventricular outflow tract is about 80 mm Hg and a mean gradient of 40 mm Hg this suggests significant stenosis in both the subaortic and also in the aortic valve level with associated moderate aortic regurgitation. The right side chambers are normal. There is mild tricuspid regurgitation. The right ventricular systolic pressure of 30 mm of Mercury. There is also mild pulmonic insufficiency. The tissue Doppler study suggests left ventricle diastolic dysfunction. Suggest further interrogation of LVOT to localize level of obstructive pathology.
== END 2022-03-22 11:24 | disposition home health service (06) | DRG 194 ==
LOC: ED 11:20 → MED SURG 14:29 → INTOOBSV 03-17 08:49 → OBSVTOIN 03-17 08:49
PROVIDERS: ADMIT Family Medicine; ATTEND Family Medicine
DX: J18.9 Pneumonia, unspecified organism (principal); R78.81 Bacteremia; I11.0 Hypertensive heart disease with heart failure; I50.9 Heart failure, unspecified; R53.1 Weakness; I10 Essential (primary) hypertension; E87.6 Hypokalemia; Z79.899 Other long term (current) drug therapy; R01.1 Cardiac murmur, unspecified; Z79.01 Long term (current) use of anticoagulants; R09.02 Hypoxemia; Z20.828 Contact with and (suspected) exposure to other viral communicable diseases
CPT/HCPCS: 0241U; 36000; 36415; 71045; 71046; 80048; 80053; 81015; 83605; 83735; 83880; 84145; 85025; 85027; 85379; 87040; 87077; 87086; 93005; 93268; 93306; 94640; 94667; 94668; 94760; 94762; 96365; 99285; G0378; J0456; J0696; J1940; J3475; A9270-GY

== ENCOUNTER 2022-10-24 08:20 | Emergency (ER) | payer MEDICARE ==
--- NOTE | 2022-10-24 09:09 | ERPHSYRPT ---
- History of Present Illness Time Seen by Provider: 10/24/22 09:08 Source: patient, family Exam Limitations: clinical condition Patient Subjective Stated Complaint: C/O increased confusion. Patient recently at [facility] and was kept overnight for observation. Family reports patient had CT, MRI, and EEG completed at [facility]. Triage Nursing Assessment: Patient brought in by ambulance. She is awake/alert. She is oriented to self and place. She is confusion to time; thinks its May of 2011. NO SOB. Skin tone normal. VERGARA WNL. Patient was able to scoot self off of ambulance cot and onto ER bed without assistance. Physician History: Patient here for increased confusion for the past week. Patient was discharged from [facility] on 10/20 and had a largely negative w/u and 7 day EEG was recommended. Her Keppra was increased to 750mg BID, but her neurologist advised her not to increase due to no seizure activity noted on video. Since d/c she has had worsening confusion. Sister reports significant worsening in her congnition over the past 4-5mo. I have concern for frontotemporal dementia. Timing/Duration: week(s) Severity: moderate Character of Deficits: none Deficits: off balance, weak Baseline/Normal Cognition: alert but confused Baseline Gait: walks w/o assistance Associated Symptoms: confusion, seizures, slurred speech (prior to [facility] visit), No fever, No nausea, No vomiting Allergies/Adverse Reactions: Penicillins Allergy (Verified 10/24/22 08:24) unsure of reaction phenobarbital Allergy (Verified 10/24/22 08:24) phenytoin sodium [From Dilantin] Allergy (Verified 10/24/22 08:24) unsure of reaction phenytoin sodium extended [From Dilantin] Allergy (Verified 10/24/22 08:24) Home Medications: Primidone [Mysoline] 375 mg PO DAILY 07/14/15 [History] Apixaban [Eliquis 5 mg Tablet] 5 mg PO BID 12/02/21 [History] Levetiracetam [Keppra] 500 mg PO BID 12/02/21 [History] Metoprolol Tartrate [Lopressor] 50 mg PO BID 12/02/21 [History] Hydrochlorothiazide 25 mg [hydroDIURIL 25 MG] 1 tab PO DAILY 01/15/22 [History] Amlodipine Besylate [Norvasc] 1 tab PO DAILY 10/24/22 [History] Budesonide/Formoterol Fumarate [Budesonide-Formoterol 160-4.5] 2 puff PO BID 10/24/22 [History] Famotidine 20 mg [Pepcid 20 MG] 1 tab PO HS 10/24/22 [History] PANTOPRAZOLE 40 mg Tablet [Protonix 40MG Tablet] 1 tab PO DAILY 10/24/22 [History] Hx Tetanus, Diphtheria Vaccination/Date Given: Yes Hx Influenza Vaccination/Date Given: Yes Hx Pneumococcal Vaccination/Date Given: No Immunizations Up to Date: Yes Travel Risk - International Travel Have you traveled outside of the country in past 3 weeks: No - Coronavirus Screening Are you exhibiting any of the following symptoms?: No Close contact with a COVID-19 positive Pt in past 14-21 Days: No - Vaccine Status Have you recieved a Covid-19 vaccination: No - Review of Systems Constitutional: Weakness, No Fever, No Chills Eyes: No Symptoms Ears, Nose, & Throat: No Symptoms Respiratory: No Symptoms Cardiac: No Symptoms Abdominal/Gastrointestinal: No Symptoms Genitourinary Symptoms: No Symptoms Musculoskeletal: No Symptoms Skin: No Symptoms Neurological: Dizziness, Gait Changes, Seizure, Speech Changes, Other (confusion), No Focal Weakness Psychological: No Symptoms Endocrine: No Symptoms Hematologic/Lymphatic: No Symptoms Immunological/Allergic: No Symptoms All Other Systems: Reviewed and Negative - Past Medical History Pertinent Past Medical History: Yes Neurological History: Epilepsy, Seizures ENT History: No Pertinent History Cardiac History: Congestive Heart Failure, Coronary Artery Disease, High Cholesterol, Hypertension Respiratory History: CHF Endocrine Medical History: No Pertinent History Musculoskeletal History: No Pertinent History GI Medical History: No Pertinent History History: No Pertinent History Psycho-Social History: Other Female Reproductive Disorders: No Pertinent History Other Medical History: Mildly mentally delayed - Past Surgical History Past Surgical History: Yes Neuro Surgical History: No Pertinent History Cardiac: CABG Respiratory: No Pertinent History Gastrointestinal: No Pertinent History Genitourinary: No Pertinent History Musculoskeletal: No Pertinent History Female Surgical History: No Pertinent History Other Surgical History: had trigger finger surgery on right hand on middle and ring finger in Apr 2015 - Social History Smoking Status: Never smoker Exposure to second hand smoke: No Drug Use: none Patient Lives Alone: No (Sister) - Nursing Vital Signs Nursing Vital Signs: Initial Vital Signs Temperature 98.1 F 10/24/22 08:24 Pulse Rate 63 10/24/22 08:24 Respiratory Rate 18 10/24/22 08:24 Blood Pressure 186/62 10/24/22 08:24 O2 Sat by Pulse Oximetry 96 10/24/22 08:24 Pain Scale Pain Intensity 0 - Gamaliel Coma Scale Best Eye Response ([place]): (4) open spontaneously Best Verbal Response (Gamaliel): (4) confused conversation Best Motor Response (Gamaliel): (6) obeys commands Gamaliel Total: 14 - Physical Exam General Appearance: no apparent distress Eye Exam: bilateral eye: normal inspection, PERRL, EOMI Ears, Nose, Throat Exam: normal ENT inspection Neck Exam: normal inspection, non-tender, supple, full range of motion Respiratory: normal breath sounds, lungs clear Cardiovascular: regular rate/rhythm, murmur (3/6 systolic at right 2nd intercostal space), capillary refill <2 sec, No edema Gastrointestinal: soft, normal bowel sounds, No tenderness Extremity Exam: normal inspection, normal range of motion, No swelling, No tenderness Mental Status: alert, cooperative, disoriented to place, disoriented to time [employer] Exam: normal hearing, normal speech, PERRL, tongue midline Coordination/Gait: normal finger to nose, normal cerebellar function Motor/Sensory: no motor deficit, no sensory deficit, no pronator drift, negative Babinski's sign Skin Exam: normal color, warm, dry SpO2 Interpretation: normal SpO2: 96 O2 Delivery: Room Air - Course Nursing assessment & vital signs reviewed: Yes Ordered Tests: Active Orders 24 hr Category Date Time Status CBC W DIFF Stat Lab 10/24/22 10:00 Completed CMP Stat Lab 10/24/22 10:00 Results CULTURE,URINE Stat Lab 10/24/22 10:12 Received Folate (Folic Acid) Stat Lab 10/24/22 10:00 Results Lactic Acid Stat Lab 10/24/22 09:45 Completed TSH, 3RD Generation Stat Lab 10/24/22 10:00 Results UA W/RFX UR CULTURE Stat Lab 10/24/22 10:12 Completed Vitamin B12 Stat Lab 10/24/22 10:00 Results Lab/Rad Data: Laboratory Result Diagrams 10/24/22 10:00 10/24/22 10:00 Laboratory Results 10/24/22 10/24/22 10/24/22 Range/Units 10:12 10:00 10:00 WBC 10.3 (4.0-10.5) x10^3/uL RBC 4.37 (4.1-5.4) x10^6/uL Hgb 13.0 (12.0-16.0) g/dL Hct 40.1 (35-47) % MCV 91.8 (78-100) fL MCH 29.7 (26-32) pg MCHC 32.4 (32-36) g/dL RDW 12.2 (11.5-14.0) % Plt Count 265 (150-450) x10^3/uL MPV 11.1 H (7.5-11.0) fL Gran % 73.5 H (36.0-66.0) % Immature Gran % (Auto) 0.4 (0.00-0.4) % Nucleat RBC Rel Count 0.0 (0.00-0.1) % Eos # (Auto) 0.19 (0-0.5) x10^3/uL Immature Gran # (Auto) 0.04 H (0.00-0.03) x10^3u/L Absolute Lymphs (auto) 1.49 (1.0-4.6) x10^3/uL Absolute Monos (auto) 0.91 (0.0-1.3) x10^3/uL Absolute Nucleated RBC 0.00 (0.00-0.01) x10^3u/L Lymphocytes % 14.5 L (24.0-44.0) % Monocytes % 8.9 (0.0-12.0) % Eosinophils % 1.8 (0.00-5.0) % Basophils % 0.9 (0.0-0.4) % Absolute Granulocytes 7.56 H (1.4-6.9) x10^3/uL Basophils # 0.09 (0-0.4) x10^3/uL Sodium 139 (137-145) mmol/L Potassium 3.8 (3.5-5.1) mmol/L Chloride 97 L (98-107) mmol/L Carbon Dioxide 35 H (22-30) mmol/L Anion Gap 11.3 (5-15) MEQ/L BUN 21 H (7-17) mg/dL Creatinine 0.83 (0.52-1.04) mg/dL Estimated GFR > 60.0 ML/MIN Glucose 108 H (74-106) mg/dL Lactic Acid (0.4-2.0) Calcium 9.1 (8.4-10.2) mg/dL Total Bilirubin 0.70 (0.2-1.3) mg/dL AST 33 (14-36) U/L ALT 19 (0-35) U/L Alkaline Phosphatase 74 (38-126) U/L Serum Total Protein 8.1 (6.3-8.2) g/dL Albumin 3.9 (3.5-5.0) g/dL Vitamin B12 506 (239-931) pg/mL Folic Acid Pending TSH 3rd Generation 1.330 (0.47-4.68) mIU/L Urine Color Yellow (Yellow) Urine Appearance Clear (Clear) Urine pH 7.0 (4.6-8.0) Ur Specific [place] 1.020 (1.005-1.030) Urine Protein 30 (Negative) Urine Glucose (UA) Negative (Negative) mg/dL Urine Ketones Negative (Negative) Urine Blood Moderate A (Negative) Urine Nitrite Negative (Negative) Urine Bilirubin Negative (Negative) Urine Urobilinogen 1.0 A (0.2) mg/dL Ur Leukocyte Esterase Small A (Negative) U Hyaline Cast (Auto) NONE SEEN (0-2) /LPF Urine Microscopic RBC 21-50 A (0-5) /HPF Urine Microscopic WBC 6-10 A (0-5) /HPF Ur Epithelial Cells None Seen (None Seen) /HPF Urine Bacteria None Seen (None Seen) /HPF Urine Culture Reflexed NO (NO) 10/24/22 Range/Units 09:45 WBC (4.0-10.5) x10^3/uL RBC (4.1-5.4) x10^6/uL Hgb (12.0-16.0) g/dL Hct (35-47) % MCV (78-100) fL MCH (26-32) pg MCHC (32-36) g/dL RDW (11.5-14.0) % Plt Count (150-450) x10^3/uL MPV (7.5-11.0) fL Gran % (36.0-66.0) % Immature Gran % (Auto) (0.00-0.4) % Nucleat RBC Rel Count (0.00-0.1) % Eos # (Auto) (0-0.5) x10^3/uL Immature Gran # (Auto) (0.00-0.03) x10^3u/L Absolute Lymphs (auto) (1.0-4.6) x10^3/uL Absolute Monos (auto) (0.0-1.3) x10^3/uL Absolute Nucleated RBC (0.00-0.01) x10^3u/L Lymphocytes % (24.0-44.0) % Monocytes % (0.0-12.0) % Eosinophils % (0.00-5.0) % Basophils % (0.0-0.4) % Absolute Granulocytes (1.4-6.9) x10^3/uL Basophils # (0-0.4) x10^3/uL Sodium (137-145) mmol/L Potassium (3.5-5.1) mmol/L Chloride (98-107) mmol/L Carbon Dioxide (22-30) mmol/L Anion Gap (5-15) MEQ/L BUN (7-17) mg/dL Creatinine (0.52-1.04) mg/dL Estimated GFR ML/MIN Glucose (74-106) mg/dL Lactic Acid 1.2 (0.4-2.0) Calcium (8.4-10.2) mg/dL Total Bilirubin (0.2-1.3) mg/dL AST (14-36) U/L ALT (0-35) U/L Alkaline Phosphatase (38-126) U/L Serum Total Protein (6.3-8.2) g/dL Albumin (3.5-5.0) g/dL Vitamin B12 (239-931) pg/mL Folic Acid TSH 3rd Generation (0.47-4.68) mIU/L Urine Color (Yellow) Urine Appearance (Clear) Urine pH (4.6-8.0) Ur Specific [place] (1.005-1.030) Urine Protein (Negative) Urine Glucose (UA) (Negative) mg/dL Urine Ketones (Negative) Urine Blood (Negative) Urine Nitrite (Negative) Urine Bilirubin (Negative) Urine Urobilinogen (0.2) mg/dL Ur Leukocyte Esterase (Negative) U Hyaline Cast (Auto) (0-2) /LPF Urine Microscopic RBC (0-5) /HPF Urine Microscopic WBC (0-5) /HPF Ur Epithelial Cells (None Seen) /HPF Urine Bacteria (None Seen) /HPF Urine Culture Reflexed (NO) - Progress Progress: unchanged Progress Note: 10/24/22 11:09 UA continues to show Hb and 21-50 RBC, today there were small LE and some bacteria. Due to patient's hx decision was made to prescribe Keflex for UTI. Advised patient to f/u w/ PCP or urologist for resolution of hematuria. 10/24/22 11:44 CMP resulted and showed no concerning findings. Will d/c patient at this time. Counseled pt/family regarding: lab results, diagnosis, need for follow-up Medical Desision Making - Independent Historian Additional History obtained from: Family - External Record(s) Reviewed Records reviewed as a part of evaluation & management: Inpatient, Discharge Summary - Diagnostic Testing Diagnostic test were ordered, analyzed, and reviewed by me: Yes - Risk of complications The pt has a mod risk of morbidity or mortality based on: Need for prescription drug management - Departure Departure Disposition: Home Clinical Impression: AMS (altered mental status), UTI (urinary tract infection) Condition: Good Critical Care Time: No Referrals: LACHO HARPER MD [Primary Care Provider] - Follow up/PCP as directed KAYLA PRESSLEY MD [NON-STAFF PHY W/O PRIVILEGES] - Follow up/PCP as directed Instructions: Urinary Tract Infections in Adults, Dementia (DC) Prescriptions: Cephalexin Mh 500 mg [Keflex 500 mg] 500 mg PO TID 7 Days #21 cap
[2022-10-24 10:06] LABS: Absolute Neutrophil Ct (ANC) 7.56 x10^3/uL (1.4-6.9); BASOPHIL % 0.9 % (0.0-0.4); Basophil (Absolute #) 0.09 x10^3/uL (0-0.4); Eosinophil % 1.8 % (0.00-5.0); Eosinophil (Absolute #) 0.19 x10^3/uL (0-0.5); Hematocrit 40.1 % (35-47); IMMATURE GRAN # 0.04 x10^3u/L (0.00-0.03); IMMATURE GRAN % 0.4 % (0.00-0.4); Lymphocyte (Absolute #) 1.49 x10^3/uL (1.0-4.6); Lymphocytes % 14.5 % (24.0-44.0); Mean Cell Volume 91.8 fL (78-100); Mean Corpuscular Hemoglobin 29.7 pg (26-32); Mean Corpuscular Hgb Concent. 32.4 g/dL (32-36); Mean Platelet Volume 11.1 fL (7.5-11.0); Monocyte (Absolute #) 0.91 x10^3/uL (0.0-1.3); Monocytes % 8.9 % (0.0-12.0); Neutrophil % 73.5 % (36.0-66.0); Platelet Count 265 x10^3/uL (150-450); Red Blood Count 4.37 x10^6/uL (4.1-5.4); Red Cell Distribution Width 12.2 % (11.5-14.0); White Blood Count 10.3 x10^3/uL (4.0-10.5)
[2022-10-24 10:16] VITALS: BP 150/80; PULSE 60
[2022-10-24 10:53] LABS: Appearance Clear (Clear); Bacteria None Seen /HPF (None Seen); Bilirubin Negative (Negative); Blood Moderate (Negative); Epithelial Cells None Seen /HPF (None Seen); Glucose, Urine Negative (Negative); Hyaline Casts NONE SEEN /LPF (0-2); Ketones Negative (Negative); Leukocyte Esterase Small (Negative); Nitrite Negative (Negative); Protein,Urine Dip 30 (Negative); RBC 21-50 /HPF (0-5)
[2022-10-24 10:57] LABS: ADD URINE CULTURE? NO (NO)
[2022-10-24 11:22] LABS: ALBUMIN 3.9 g/dL (3.5-5.0); ALKALINE PHOSPHATASE 74 U/L (38-126); ANION GAP 11.3 MEQ/L (5-15); BLOOD UREA NITROGEN 21 mg/dL (7-17); CHLORIDE 97 mmol/L (98-107); Calcium 9.1 mg/dL (8.4-10.2); Carbon Dioxide 35 mmol/L (22-30); Creatinine 1 0.83 mg/dL (0.52-1.04); EST GLOMERULAR FILTRATION RATE > 60.0 ML/MIN; Glucose 108 mg/dL (74-106); Potassium 3.8 mmol/L (3.5-5.1); SGOT/AST 33 U/L (14-36); SGPT/ALT 19 U/L (0-35); SODIUM 139 mmol/L (137-145); Total Protein 8.1 g/dL (6.3-8.2); Vitamin B12 506 pg/mL (239-931)
[2022-10-24 12:10] VITALS: O2SAT 97
[2022-10-24 14:28] LABS: Folate (Folic Acid) 7.59 ng/mL (2.76 - >20)
[2022-10-26 06:09] LABS: RPR Non Reactive (Non Reactive)
[2022-10-26 07:21] LABS: HIV Screen 4th Generation wRfx Non Reactive (Non Reactive)
== END 2022-10-24 12:17 | disposition home or self-care (01) ==
LOC: ED 08:20
DX: N39.0 Urinary tract infection, site not specified (principal); R41.82 Altered mental status, unspecified; E78.5 Hyperlipidemia, unspecified; I11.0 Hypertensive heart disease with heart failure; I50.9 Heart failure, unspecified; Z79.01 Long term (current) use of anticoagulants; Z79.899 Other long term (current) drug therapy; Z28.310 Unvaccinated for COVID-19
CPT/HCPCS: 36415; 80053; 81001; 82607; 82746; 83605; 84443; 85025; 86592; 87077; 87086; 87186; 87389; 99282